=== PATIENT | female | born 1945 | race Caucasian/White ===

== ENCOUNTER → 2017-03-23 | Outpatient (CLI) | payer BC, OTHER ==
[~2017-03-23] MED LIST: GLIP5TAB10 PO; MELO7.5T29 PO; METF-620 PO; SIMV40TA3 PO
--- NOTE | 2017-03-23 15:36 | RAD ---
DATE: 03/23/2017 EXAM: DIGITAL DIAGNOSTIC RT, BREAST RIGHT HISTORY: Abnormal screening exam COMPARISON: Note is made of the mobile screening examination 02/17/2017 demonstrating calcifications in the right breast. FINDINGS: Breast Density: SCATTERED The breast parenchyma shows scattered fibroglandular densities. Breast parenchyma level B. Coned compression images targeted to the calcification seen on the screening examination were obtained. There are amorphous calcification in the right breast which do not have a benign appearance. The mammographic appearance is strongly suggestive of malignancy. Targeted ultrasound of the right breast was performed. Corresponding to the area of calcification is a shadowing vascular hypoechoic mass at the 11:30 position measuring approximately 3.6 cm in greatest dimension. The ultrasound findings are most compatible with primary malignancy. Enlarged lymph nodes are seen in the right axilla suggesting amy metastatic disease. The largest lymph node in the axilla measures 4 cm. Recommendation for biopsy was communicated by me to the patient IMPRESSION: Calcified mass right breast most compatible with primary malignancy. Enlarged lymph nodes in the right axilla suggest local amy metastatic disease BI-RADS CATEGORY: 5 HIGHLY SUGGESTIVE MALIGNANCY RECOMMENDED FOLLOW-UP: BIO BIOPSY RECOMMENDED PQRS compliance statement: Patient information was entered into a reminder system with a target due date soon for the next mammogram. Mammography is a sensitive method for finding small breast cancers, but it does not detect them all and is not a substitute for careful clinical examination. A negative mammogram does not negate a clinically suspicious finding and should not result in delay in biopsying a clinically suspicious abnormality. "Our facility is accredited by the [employer]ammography [employer]."
== END | disposition home or self-care (01) ==
LOC: US 13:40
PROVIDERS: ATTEND Surgery
DX: N63 Unspecified lump in breast (principal); R59.9 Enlarged lymph nodes, unspecified
CPT/HCPCS: 76641; G0206; 77065

== ENCOUNTER → 2017-03-25 | Outpatient (CLI) | payer BC, OTHER ==
[~2017-03-25] VITALS: Ht 154.9 cm; Wt 56.7 kg
[2017-03-25 13:52] VITALS: BP 147/58
--- NOTE | 2017-03-25 15:12 | RAD ---
Indication right breast mass highly suspect for primary malignancy. Note is made of recent imaging of the right breast 03/23/2017 demonstrating findings highly suspect for primary breast malignancy. Preliminary ultrasound images were obtained and the known mass at the 11:00 position of the breast was identified. Ordained Minister ultrasound images were saved. Note was also made of an enlarged lymph node in the right axilla measuring approximately 3 cm in greatest dimension. Image guided biopsy of the breast mass and the enlarged lymph node in the right axilla was discussed with the patient. The risks of infection and bleeding were outlined. The possibility of damage to nerves in the axilla was also discussed. The patient understood the risks associated with the procedure and wished to proceed. Initially the breast mass was approached. The skin was prepped and draped in the routine fashion. Local anesthesia was accomplished with 1% lidocaine. Under ultrasound guidance 4 core samples were obtained. A 14-gauge coaxial system was utilized. Following the biopsy a clip was deployed. Subsequently the right axilla was approached. Again the skin was prepped and draped in the routine fashion. A separate set of needles was used. A separate biopsy system was utilized. Localized lesion was accomplished with 1% lidocaine. A coaxial 18-gauge core biopsy system was utilized. 4 core samples were obtained. The patient tolerated the biopsy procedures well. Following the biopsy the patient was transferred to a dedicated mammographic suite. Conventional images were obtained. Note is made of the biopsy clip. The clip is removed from the suspect calcifications by approximately 1 cm. The retrieved tissue was placed in formaldehyde 1. Marked breast and the second marked axilla. The biopsy sites were dressed in the routine fashion the patient discharged with appropriate instructions. IMPRESSION: Successful ultrasound-guided biopsy of right breast mass and enlarged lymph node in the right axilla
--- NOTE | 2017-03-29 09:10 | PATHOLOGY ---
PATHOLOGY REPORT * * * * * * * * FINAL DIAGNOSIS: A. Breast tissue, right breast core biopsies: - INVASIVE DUCTAL CARCINOMA, HISTOLOGIC GRADE II. SEE COMMENT. - DUCTAL CARCINOMA IN SITU, INTERMEDIATE GRADE, SOLID AND CRIBRIFORM TYPE, WITH FOCAL NECROSIS. B. Right axilla core biopsy: - CONSISTENT WITH METASTATIC ADENOCARCINOMA. COMMENT: Sections of the right breast core biopsy reveal an invasive mammary carcinoma. The tumor shows focal tubule formation, moderate nuclear pleomorphism, and focal moderate mitotic activity. There is focal tumor necrosis. One of the cores shows predominantly intermediate grade ductal carcinoma in situ of solid and cribriform type. There are focal calcifications within areas of DCIS and invasive carcinoma. Tumor focally infiltrates fatty tissue. There is no lymphovascular tumor invasion. Invasive carcinoma measures up to 1.3 cm in greatest dimension on the glass slide. Breast prognostic studies will be obtained, the results of which will be reported separately. Sections of the right axilla biopsy reveal multiple cores of tissue showing extensive replacement by a malignant epithelial neoplasm appearing similar to that within the breast. The findings are consistent with metastatic adenocarcinoma. The case is also examined by Dr. Ochoa, who concurs with the diagnosis. (JPM:mgr; 03/28/2017) REPORT ELECTRONICALLY SIGNED BY: Loc Tovar M.D. DATE/TIME: 03/29/2017 09:09 * * * * * * * * GROSS PATHOLOGY: A. Received in formalin labeled "Emeli Carrillo, right breast," are multiple needle cores of yellow-jones fibrofatty tissue measuring 1.0 x 0.8 x 0.2 cm in aggregate dimensions. The tissue is submitted in its entirety in cassette A1. The cold ischemic time is 5 minutes. The total formalin fixation time is 55 hours and 20 minutes B. Received in formalin labeled "right axilla," are 5 distinct needle cores of mayfield soft tissue ranging from 0.3 to 1.2 cm in length, which are submitted entirely in cassette B1. The cold ischemic time is 5 minutes. The total formalin fixation time is 55 hours and 15 minutes ([facility]; 03/25/17) INITIAL CPT CODE(S): A; 03543, 50613(4) B; 58140 Professional services performed by [facility] [place] [address] Technical services performed by [facility] at [address] [place] [address], [address], [place] [address]. SPECIMEN(S) RECEIVED: A.Right breast biopsy B.Right axillary nodule CLINICAL HISTORY: Right breast and axilla nodule PATIENT: EMELI CARRILLO /AGE: 6 1945 (Age: 72) PATIENT #: [id number] ALT CASE #: SPECIMEN COLLECTION DATE: 03/25/2017 SPECIMEN RECEIVED DATE: 03/25/2017 [facility] - [address] [place] [address] - PHONE: [phone] * * * END OF REPORT * * *
== END | disposition home or self-care (01) ==
LOC: US 13:19
PROVIDERS: ATTEND Surgery
DX: N63 Unspecified lump in breast (principal)
CPT/HCPCS: 76942; C1713; G0206; 77065

== ENCOUNTER 2017-04-18 07:25 | Observation (INO) | payer BC ==
[~2017-04-18] VITALS: Ht 152.4 cm; Wt 58.5 kg
[~2017-04-18 07:25] MED LIST changes: +CALC-31 PO; +CETI10TA16 PO; +HYDROmorphone 2 MG/ML VIAL IV PRN; +ISOSULFAN BLUE 50 MG/5 ML VIAL. SQ ONE; +LIDOCAINE 1% PF 2 ML VIAL. ID PRN; +MORPHINE SULFATE 2 MG/ML DISP.SYRIN. IV PRN; +ONDANSETRON PF 4 MG/2 ML VIAL. IV PRN; +PROCHLORPERAZINE 10 MG/2 ML VIAL. IV PRN; +fentaNYL PF VIAL 100 MCG/2 ML VIAL IV PRN
--- NOTE | 2017-04-18 08:23 | EKG ---
[facility] [address] [place] [address] Test Date: 2017-04-18 Test Time: 08:28:33 Pat Name: DIONNA CARRILLO Department: Room: Gender: F Human Capital Analyst: JOELLE : 1945 Requested By: BEN ZHAO Order Number: [id number] Reading MD: Melanie Crooks Measurements Intervals [place] Rate: 85 P: 65 AL: 214 QRS: -42 QRSD: 136 T: 98 QT: 414 QTc: 493 Interpretive Statements SINUS RHYTHM PROLONGED AL INTERVAL ABNORMAL LEFT AXIS DEVIATION INCOMPLETE LEFT BUNDLE BRANCH BLOCK QRS(T) CONTOUR ABNORMALITY CONSIDER ANTEROSEPTAL MYOCARDIAL DAMAGE ABNORMAL ECG Electronically Signed On 04-18-2017 19:00:29 CDT by Melanie Crooks
[2017-04-18] MEDS: IV RINGERS,LACTATED 1000ML 1,000 ML IV SCH ×2 (08:35→12:13)
[2017-04-18] MEDS ORDERED: DEXAMETHASONE SOD PHOS 20 MG/5 ML VIAL. ONE (08:44)
[2017-04-18] MEDS ORDERED: fentaNYL PF VIAL 100 MCG/2 ML VIAL ONE (08:44)
[2017-04-18] MEDS ORDERED: PROPOFOL 20 ML IV ONE (08:44)
[2017-04-18] MEDS ORDERED: SEVOFLURANE 31 TO 60 MINUTES. IH ONE (08:44)
[2017-04-18] MEDS ORDERED: MIDAZOLAM HCL/PF 2 MG/2 ML VIAL. ONE (08:44)
[2017-04-18] MEDS ORDERED: LIDOCAINE 2% PF Vial for OR 5 ML VIAL. ONE (08:44)
[2017-04-18] MEDS ORDERED: ONDANSETRON PF 4 MG/2 ML VIAL. ONE (08:44)
--- NOTE | 2017-04-18 11:41 | PDOC4 ---
Operative Note Operative Note Operative Note: Preoperative Diagnosis: Right breast cancer with axillary lymph node metastasis Postoperative Diagnosis: Same Procedure: Right modified radical mastectomy Surgeon: Florin Navarro.: Keesha ZAMBRANO Anesthesia: Gen. EBL: 50 mL Specimen: Right breast and axillary contents to pathology Drains: 19 [place] round Gil drain to chest wall Complications: None Indication: The patient is a 72-year-old female who was referred following a recent evaluation for a large right breast mass. She underwent biopsies of the breast mass in addition to suspicious-appearing axillary lymph nodes. Both were positive for adenocarcinoma. In reviewing treatment options with her the patient has no interest in breast conservation and prefers initial surgery with a complete mastectomy. She has met with Dr. Watson preoperatively who concurs. Plan is therefore for a right modified radical mastectomy. The details and risks of surgery were discussed with the patient. The risks include bleeding, infection, pain, nerve injury, wound healing problems, anesthetic risk, potential need for additional surgery or procedure. She understands and would like to proceed. Description: The patient was taken to the operating room and placed supine on the operating table. Gen. anesthesia was performed. The right breast and axilla were prepped with ChloraPrep and draped in a standard surgical manner. An elliptical incision was made around the right nipple areolar complex extending from the medial chest to the axilla. Cautery dissection was used to develop the skin flaps. The superior skin flap was developed first the skin from the deeper breast parenchyma. This was carried superiorly to the level just below the clavicle. In a similar manner the inferior skin flap was developed, freeing the skin away from the breast parenchyma. This included the inframammary fold and the dissection was carried down to the upper torso. In a medial to lateral fashion the right breast was taken off of the chest wall. A stitch was used to miriam the 12 o'clock position and the specimen was sent to pathology. A few small blood vessels were readily controlled with cautery and a few larger vessels were ligated with 2-0 Vicryl ties. We then directed our attention to the right axilla. There were bulky lymph nodes present consistent with known metastatic disease. We began freeing up the axillary lymph nodes and adipose tissue. The boundaries of the dissection included the axillary vein superiorly, the pectoralis medially, and the latissimus laterally. Both the long thoracic and thoracodorsal nerves were identified and preserved. In a superior to inferior fashion the axillary contents including the bulky lymph nodes were excised and sent to pathology. A few larger vessels supplying the axillary contents were ligated in the process with 2-0 Vicryl. Hemostasis was good and no other gross abnormalities were seen. A 19 [place] round Gil drain was left in the right chest wall which exited inferiorly. This was secured to the skin with 2-0 nylon. Hemostasis was good. The subcutaneous tissue was approximated with 3-0 Vicryl. The skin was then closed with a running 4-0 Monocryl suture. A sterile OpSite dressing was applied. The patient tolerated the procedure well and was sent to the recovery room in stable condition. At the end of the case all counts were correct. BEN ZHAO MD Apr 18, 2017 11:41
[2017-04-18] MEDS ORDERED: 0.9 % SODIUM CHLORIDE 10 ML DISP.SYRIN. IV PRN (12:00)
[2017-04-18] MEDS ORDERED: HYDROcodone/APAP 5/325MG 1 TAB TABLET PO PRN (12:00)
[2017-04-18] MEDS ORDERED: HYDROmorphone 2 MG/ML VIAL IV PRN (12:00)
[2017-04-18] MEDS ORDERED: ONDANSETRON PF 4 MG/2 ML VIAL. IV PRN (12:00)
[2017-04-18] MEDS: fentaNYL PF VIAL 100 MCG/2 ML VIAL IV PRN ×2 (12:06→12:16)
[2017-04-18 14:15] VITALS: BP 140/71
[2017-04-18 14:30] VITALS: BP 134/65
[2017-04-18 14:45] VITALS: BP 131/67
[2017-04-18] MEDS: IV 1/2 NORMAL SALINE 1,000 ML IV SCH (15:33)
[2017-04-18 16:52] VITALS: BP 131/67
[2017-04-18 19:00] VITALS: BP 124/66
[2017-04-18] MEDS ORDERED: SIMVASTATIN 40 MG TABLET. PO SCH (21:00)
[2017-04-18] MEDS: HYDROcodone/APAP 5/325MG 1 TAB TABLET PO PRN (21:32)
[2017-04-18 23:00] VITALS: BP 137/55
[2017-04-19] MEDS: IV 1/2 NORMAL SALINE 1,000 ML IV SCH ×2 (01:30→14:00)
[2017-04-19 03:00] VITALS: BP 112/43
[2017-04-19 07:00] VITALS: BP 150/70
[2017-04-19] MEDS ORDERED: glipiZIDE 5 MG TABLET PO SCH (09:00)
[2017-04-19] MEDS ORDERED: CALCIUM CARB/VIT D3 500/200 TABLET. PO SCH (09:00)
[2017-04-19] MEDS ORDERED: CETIRIZINE HCL 10 MG TABLET. PO SCH (09:00)
[2017-04-19] MEDS: HYDROcodone/APAP 5/325MG 1 TAB TABLET PO PRN (09:23)
[2017-04-19 11:00] VITALS: BP 148/78
--- NOTE | 2017-04-19 12:28 | PDOC ---
AMY COLÓN APRN 04/19/17 1228: SURGICAL PROGRESS NOTE Subjective tolerating diet no n/v interested in home health Vital Signs Vital Signs Date Time Temp Pulse Resp B/P (MAP) Pulse Ox O2 Delivery O2 Flow Rate FiO2 04/19/17 11:00 98.2 72 148/78 (101) 96 Room Air 98.2 04/19/17 10:25 18 04/18/17 22:32 10.0 I&O Intake and Output 04/20/17 07:00 Intake Total 390 ml Balance 390 ml Intake Oral 390 ml General: Alert, Oriented X3, Cooperative, No acute distress Skin: Other (right breast incision dry, bruce minimal serosang ) Labs Laboratory Tests Test 04/18/17 08:15 04/18/17 11:38 04/18/17 17:01 04/18/17 21:34 Glucose (Fingerstick) 108 mg/dL (70-99) 194 mg/dL (70-99) 223 mg/dL (70-99) 234 mg/dL (70-99) Test 04/19/17 07:37 04/19/17 11:20 Glucose (Fingerstick) 153 mg/dL (70-99) 81 mg/dL (70-99) Laboratory Tests Test 04/18/17 17:01 04/18/17 21:34 04/19/17 07:37 04/19/17 11:20 Glucose (Fingerstick) 223 mg/dL (70-99) 234 mg/dL (70-99) 153 mg/dL (70-99) 81 mg/dL (70-99) Problem List s/p mastectomy DC home pt would like home health, will ask sw Problems: BEN ZHAO MD 04/19/17 1257: SURGICAL PROGRESS NOTE Assessment/Plan Agree with above Problems: AMY COLÓN APRN Apr 19, 2017 12:28 BEN ZHAO MD Apr 19, 2017 12:57
[2017-04-19 15:00] VITALS: BP 144/86
== END 2017-04-19 15:30 | disposition home health service (06) ==
LOC: SURG 07:25 → 5 SOUTH 11:51
PROVIDERS: ADMIT Surgery; ATTEND Surgery
DX: C50.911 Malignant neoplasm of unspecified site of right female breast (principal); C77.3 Secondary and unspecified malignant neoplasm of axilla and upper limb lymph nodes
CPT/HCPCS: 19307; 82962; 93005; 97161; 97165; G0378; G0379; J0690; J1100; J2250; J2405; J2704; J3010; Q9968; J2001

== ENCOUNTER 2017-05-18 11:52 | Day surgery (SDC) | payer BC ==
[~2017-05-18 11:52] MED LIST changes: +HEPARIN SODIUM 5,000 UNIT in IV NORMAL SALINE 500ML BAG 500 ML IRR ONE; +HYDR-2758 PO; -ISOSULFAN BLUE 50 MG/5 ML VIAL. SQ ONE; +IV RINGERS,LACTATED 1000ML 1,000 ML IV SCH; -MORPHINE SULFATE 2 MG/ML DISP.SYRIN. IV PRN; +MORPHINE SULFATE 4 MG/ML DISP.SYRIN. IV PRN
[2017-05-18] MEDS ORDERED: LIDOCAINE 1% 20 ML VIAL. ONE (13:22)
[2017-05-18] MEDS ORDERED: HEPARIN for IV BOLUS 10,000 UNIT/10 ML VIAL. ONE (13:23)
[2017-05-18] MEDS ORDERED: PROPOFOL 20 ML IV ONE (13:44)
[2017-05-18] MEDS ORDERED: ONDANSETRON PF 4 MG/2 ML VIAL. ONE (13:44)
[2017-05-18] MEDS ORDERED: DEXAMETHASONE SOD PHOS 20 MG/5 ML VIAL. ONE (13:44)
[2017-05-18] MEDS ORDERED: LIDOCAINE 2% PF Vial for OR 5 ML VIAL. ONE (13:44)
[2017-05-18] MEDS ORDERED: ESMOLOL 100 MG/10 ML VIAL. IV ONE (13:49)
[2017-05-18] MEDS ORDERED: SEVOFLURANE 61 TO 120 MINUTES. IH ONE (14:14)
--- NOTE | 2017-05-18 14:19 | PDOC4 ---
Operative Note Operative Note Operative Note: Preoperative Diagnosis: Breast Cancer Postoperative Diagnosis: Same Procedure: Placement of Power Port-A-Cath using SonoSite guidance Surgeon: Florin Anesthesia: Gen. EBL: 10 mL Specimen: None Drains: None Complications: None Indication: The patient is a 72 year old female who was recently diagnosed with right breast cancer. A request was made for placement of a Port-A-Cath to allow for chemotherapy treatment. The details and risks of the procedure were discussed. The risks include bleeding, infection, vessel injury, pneumothorax, pain, anesthetic risk, port, catheter or tubing malfunction or dysfunction, potential need for additional surgery or procedure. The patient understands and would like to proceed. Description: The patient was placed supine on the operating table and general anesthesia was performed. The bilateral neck and chest were prepped with ChloraPrep and draped in a standard surgical manner. With SonoSite ultrasound guidance the left internal jugular vein was readily identified and appeared patent. Entry was made into the vein with the skinny introducer needle under ultrasound guidance. The skinny guidewire passed readily into the central venous system. A small incision was made at the skin exit site. The skinny sheath was then placed over the guidewire. The larger guidewire was then placed within the sheath into the central venous system. Intraoperative fluoroscopy confirmed good position of the guidewire in the central venous system. The dilator and sheath were then placed over the guidewire. The catheter portion was then inserted into the central venous system and visualized using fluoroscopy. A separate left upper chest skin incision was made with a scalpel. A subcutaneous pocket was developed with cautery of sufficient size to accommodate the port. The catheter was then tunneled subcutaneously to the level of the newly formed pocket. Using fluoroscopy the catheter was positioned with the tip in the distal superior vena cava. The catheter was then cut and assembled to the port. The port was then secured to the chest wall with two 2-0 Prolene sutures. Using the Katz needle the port readily aspirated and flushed without difficulty. Fluoroscopy confirmed good positioning of the catheter with no twists or kinks. The subcutaneous tissue was approximated with 3-0 Vicryl. The skin was then closed with 4-0 Monocryl. A sterile OpSite dressing was then applied. The patient tolerated the procedure well and was sent to the recovery room in stable condition. At the end of the case all counts were correct. BEN ZHAO MD May 18, 2017 14:19
--- NOTE | 2017-05-18 14:21 | DISCH ---
DISCHARGE INSTRUCTIONS Condition on Discharge Condition on Discharge: Stable Activity After Discharge Activity Instructions for Disc: Activity as tolerated Diet after Discharge Diet after Discharge: Regular Wound Incision Care Wound/Incision Care: Other, see below (keep dressing clean and dry) Follow-Up Follow up with: Dr Zhao in 2 weeks, call for appt [phone] Follow Up With: Oncology per appointment BEN ZHAO MD May 18, 2017 14:21
[2017-05-18 15:00] VITALS: BP 169/62
[2017-05-18] MEDS ORDERED: HYDROcodone/APAP 5/325MG 1 TAB TABLET PO ONE (15:00)
--- NOTE | 2017-05-18 15:00 | RAD ---
Single view of the Chest 05/18/2017 4:19 PM Indication: portacath placement Comparison: Chest radiograph August 26, 2015 Findings: There is a left internal jugular port with tip at the cavoatrial junction. No pneumothorax is seen. No acute appearing infiltrate is identified. Heart size is mildly enlarged. Diffuse interstitial coarsening is noted. No acute osseous changes are identified. Impression: 1.New left internal jugular port with tip at the cavoatrial junction. 2. Diffuse interstitial coarsening, similar to comparison exam.
== END 2017-05-18 16:34 | disposition home or self-care (01) ==
LOC: SURG 11:52
PROVIDERS: ATTEND Surgery
DX: C50.911 Malignant neoplasm of unspecified site of right female breast (principal); E11.42 Type 2 diabetes mellitus with diabetic polyneuropathy; E78.00 Pure hypercholesterolemia, unspecified; M19.91 Primary osteoarthritis, unspecified site; Z88.6 Allergy status to analgesic agent; Z86.69 Personal history of other diseases of the nervous system and sense organs; Z88.0 Allergy status to penicillin; Z98.890 Other specified postprocedural states
CPT/HCPCS: 36561; 71010; 82962; C1769; J1100; J1644; J1956; J2405; J2704; J3490; J7030; J7040; J7120; 36556; J2001

== ENCOUNTER → 2017-05-25 | Outpatient (CLI) | payer BC, MEDICAID ==
[2017-05-18 15:00] VITALS: BP 169/62
[~2017-05-25] MED LIST changes: -HEPARIN SODIUM 5,000 UNIT in IV NORMAL SALINE 500ML BAG 500 ML IRR ONE; -HYDROmorphone 2 MG/ML VIAL IV PRN; -IV RINGERS,LACTATED 1000ML 1,000 ML IV SCH; -LIDOCAINE 1% PF 2 ML VIAL. ID PRN; -MORPHINE SULFATE 4 MG/ML DISP.SYRIN. IV PRN; -ONDANSETRON PF 4 MG/2 ML VIAL. IV PRN; -PROCHLORPERAZINE 10 MG/2 ML VIAL. IV PRN; -fentaNYL PF VIAL 100 MCG/2 ML VIAL IV PRN
--- NOTE | 2017-05-25 09:54 | CARD ---
APPROVED REPORT EXAM: Two-dimensional and M-mode echocardiogram with Doppler and color Doppler. Other Information Quality : Average Rhythm : NSR INDICATION Chemotherapy evaluation 2D DIMENSIONS RVDd2.1 (2.9-3.5cm)Left Atrium(2D)2.8 (1.6-4.0cm) IVSd1.0 (0.7-1.1cm)Aortic Root(2D)2.7 (2.0-3.7cm) LVDd5.2 (3.9-5.9cm)LVOT Diameter2.1 (1.8-2.4cm) PWd1.0 (0.7-1.1cm)LVDs4.0 (2.5-4.0cm) SV59.8 mlLVEF(%)40.8 (>50%) Aortic Valve AoV Peak Sam.145.0cm/sAoV VTI19.7cm AO Peak GR.8.4mmHgLVOT Peak Sam.99.3cm/s LVOT VTI 17.47cmAO Mean GR.4mmHg SHA (VMAX)2.44zw3OOU (VTI)2.95cm2 AI P 1/2 Holr461tn Mitral Valve MV E Lxyplubq65.0cm/sMV DECEL FFLQ946wn MV A Iuxqgkvd317.6cm/sMV E Mean Gr.3mmHg MV AES49heB/A Ratio0.7 MV A Ormjrslv079cvHWW (PHT)2.75cm2 TDI E/Lateral E'9.3E/Medial E'10.8 Pulmonary Valve PV Peak Itmptsdf92.6cm/sPV Peak Grad.4mmHg RVOT VTI18.6cm Tricuspid Valve TR P. Yqtsxbyn870sr/sRAP IDDZRRNO6riCw TR Peak Gr.59wkGbVROO14ciUz LEFT VENTRICLE The left ventricle is normal size. There is normal left ventricular wall thickness. Left ventricle sy stolic function is moderately impaired. The Ejection Fraction is 35-40%. Abnormal septal wall motion. Tissue Doppler imaging reveals mild left ventricular diastolic dysfunction. Transmitral Doppler flow pattern is Grade I-abnormal relaxation pattern. There is no ventricular septal defect visualized. RIGHT VENTRICLE The right ventricle is normal size. The right ventricular systolic function is normal. ATRIA The left atrium size is normal. The right atrium size is normal. The interatrial septum is intact wit h no evidence for an atrial septal defect or patent foramen ovale as noted on 2-D or Doppler imaging. AORTIC VALVE The aortic valve is not well visualized. Doppler and Color Flow revealed moderate aortic regurgitatio n. There is no significant aortic valvular stenosis. MITRAL VALVE The mitral valve leaflets are thickened. There is no mitral valve stenosis. Doppler and Color Flow re vealed mild mitral regurgitation. TRICUSPID VALVE The tricuspid valve is normal in structure and function. Doppler and Color Flow revealed mild tricusp id regurgitation. The PA pressure was estimated at 35 mmHg. There is no tricuspid valve stenosis. PULMONIC VALVE The pulmonic valve is not well visualized. Doppler and Color Flow revealed no pulmonic valvular regur gitation. There is no pulmonic valvular stenosis. GREAT VESSELS The aortic root is normal in size. Pulmonary vein flow not well visualized. The IVC is normal in size and collapses >50% with inspiration. PERICARDIAL EFFUSION There is no evidence of significant pericardial effusion. Critical Notification Critical Value: No <Conclusion> Left ventricle systolic function is moderately impaired. The Ejection Fraction is 35-40%. Transmitral Doppler flow pattern is Grade I-abnormal relaxation pattern. Moderate aortic regurgitation. Mild mitral regurgitation. Mild tricuspid regurgitation. The PA pressure was estimated at 35 mmHg. There is no evidence of significant pericardial effusion.
== END | disposition home or self-care (01) ==
LOC: ECHO 08:43
PROVIDERS: ATTEND Internal Medicine Hematology & Oncology
DX: I08.3 Combined rheumatic disorders of mitral, aortic and tricuspid valves (principal); C50.411 Malignant neoplasm of upper-outer quadrant of right female breast; Z17.0 Estrogen receptor positive status [ER+]
CPT/HCPCS: 93306

== ENCOUNTER 2017-06-10 08:07 | Outpatient (CLI) | payer BC, MEDICAID ==
[2017-06-10] VITALS (10 sets, daily range): BP systolic 111–136; BP diastolic 51–64
[~2017-06-10] VITALS: Ht 154.9 cm; Wt 56.7 kg
[2017-06-10 08:49] LABS: HEMATOCRIT 40.6 % (36.0-47.0); HEMOGLOBIN 13.6 g/dL (12.0-15.5); RED BLOOD COUNT 4.88 x10^6/uL (3.50-5.40); RED CELL DISTRIBUTION WIDTH 13.7 % (11.5-14.5)
[2017-06-10] MEDS ORDERED: ACET325T9 PO (08:50)
[2017-06-10] MEDS ORDERED: CARV3.122 PO (08:50)
--- NOTE | 2017-06-10 08:52 | PDOC ---
MODERATE SEDATION ASSESSMENT RISKS/ALTERNATIVES Risks/Alternatives Risks and alternatives of this type of sedation and procedure discussed with: RISK/ALTERNATIVES: Patient H & P ON CHART H & P H & P on chart and reviewed for co-morbid conditions and appropriate labs. H&P ON CHART: Yes STATUS PREG STATUS ASSESSED: N/A MEDS/ALLERGIES REVIEWED Meds/Allergies Reviewed Medications and Allergies including time and route of recently administered narcotics and sedatives. MEDS/ALLERGIES REVIEWED: Yes ASA RATING ASA RATING: II AIRWAY ASSESSMENT Airway Assessment Airway patency, oral function limitations, presence of caps, crowns, dentures, partials, and ability to extend neck assessed. AIRWAY ASSESSMENT: Yes MALLAMPATI SCORE MALLAMPATI SCORE: II PRE-SEDATION ASSESSMENT PRE-SEDATION ASSESSMENT: Yes RAYMOND HARRIS MD Jun 10, 2017 08:52
[2017-06-10 08:55] LABS: WHITE BLOOD COUNT 0.8 x10^3/uL (4.0-11.0)
[2017-06-10 08:56] LABS: CALCIUM 8.8 mg/dL (8.5-10.1); CREATININE 0.9 mg/dL (0.6-1.0); GFR 61.2; POTASSIUM 3.9 mmol/L (3.5-5.1)
[2017-06-10 08:58] LABS: INR 1.2 (0.8-1.1); PROTHROMBIN TIME PATIENT 14.9 SEC (11.7-14.0)
[2017-06-10] MEDS ORDERED: LIDOCAINE 2% 20 ML VIAL. ONE (09:14)
[2017-06-10] MEDS ORDERED: IOHEXOL 300 MG/ML 100ML VIAL. ONE (09:14)
[2017-06-10] MEDS ORDERED: MIDAZOLAM HCL/PF 2 MG/2 ML VIAL. ONE (09:23)
[2017-06-10] MEDS ORDERED: fentaNYL PF VIAL 100 MCG/2 ML VIAL ONE (09:23)
[2017-06-10] MEDS ORDERED: VERAPAMIL 5 MG/2 ML VIAL. ONE (09:24)
[2017-06-10] MEDS ORDERED: HEPARIN for IV BOLUS 10,000 UNIT/10 ML VIAL. ONE (09:24)
[2017-06-10] MEDS ORDERED: NITROGLYCERIN 200 MCG/2 ML SYRINGE FOR CATH/VASC LAB. ONE (09:24)
[2017-06-10] MEDS ORDERED: fentaNYL PF VIAL 100 MCG/2 ML VIAL IV ONE (10:15)
[2017-06-10] MEDS ORDERED: LIDOCAINE 2% 20 ML VIAL. IJ ONE (10:15)
[2017-06-10] MEDS ORDERED: IOHEXOL 300 MG/ML 100ML VIAL. IART ONE (10:15)
[2017-06-10] MEDS ORDERED: MIDAZOLAM HCL/PF 2 MG/2 ML VIAL. IV ONE (10:15)
[2017-06-10] MEDS ORDERED: IV 1/2 NORMAL SALINE 1,000 ML IV SCH (10:16)
[2017-06-10] MEDS ORDERED: NITROGLYCERIN SUBLINGUAL 0.4 MG BOTTLE OF 25. SL PRN (10:30)
[2017-06-10] MEDS ORDERED: 0.9 % SODIUM CHLORIDE 10 ML DISP.SYRIN. IV PRN (10:30)
--- NOTE | 2017-06-10 10:31 | CARD ---
APPROVED REPORT Procedure(s) performed: Left heart catheterization, selective coronary angiography and left ventricul ography Moderate Sedation: 41 [place] INDICATION The indication(s) include : Cardiomyopathy. PROCEDURE NARRATIVE After explaining the risks, benefits and alternative options, informed consent was obtained from page ent. Patient was brought to the cardiac Dredge Mate and right wrist and groin were prepped and draped i n the usual fashion. Attempts to obtain radial arterial access were unsuccessful due to small caliber vessel. Arterial access was then obtained in the right common femoral artery and a 6 Slov[place] sheath was inserted. 6 [place] JL4 and 6 [place] JR4 catheters were used to perform selective angiography of t he left and right coronary arteries. 6 [place] pigtail catheter was used to perform left ventriculogr aphy. Patient tolerated the procedure well. Hemostasis was achieved using Angio-Seal. There were n o immediate complications. The following findings were noted. FINDINGS 1. Hemodynamics: Left ventricular end-diastolic pressure of 6 mmHg. No pullback gradient across the aortic valve. 2. Left ventriculography: Severe global left ventricle systolic dysfunction with ejection fraction e stimated at 25%. No significant mitral regurgitation seen. 3. Coronary angiography: a. The left main coronary artery arose from the left sinus of Valsalva, gave rise to the left anteri or descending and left circumflex arteries and did not show any significant stenosis. b. The left anterior descending artery did not show any significant stenosis. c. The left circumflex artery did not show any significant stenosis. d. The right coronary artery was a large and dominant vessel arising from the right sinus of Valsalv a that did not show any significant stenosis. Conclusion 1. No significant coronary artery disease 2. Severe global left ventricle systolic dysfunction with ejection fraction estimated at 25% Recommendations Optimization of medical therapy for nonischemic cardiomyopathy.
== END 2017-06-10 13:10 | disposition home or self-care (01) ==
LOC: CCL 08:07
PROVIDERS: ATTEND Internal Medicine Cardiovascular Disease
DX: I11.9 Hypertensive heart disease without heart failure (principal); E78.00 Pure hypercholesterolemia, unspecified; E11.42 Type 2 diabetes mellitus with diabetic polyneuropathy; M19.91 Primary osteoarthritis, unspecified site; Z86.69 Personal history of other diseases of the nervous system and sense organs; Z87.39 Personal history of other diseases of the musculoskeletal system and connective tissue; Z86.39 Personal history of other endocrine, nutritional and metabolic disease; Z87.440 Personal history of urinary (tract) infections; Z88.6 Allergy status to analgesic agent; Z88.0 Allergy status to penicillin
CPT/HCPCS: 36415; 80048; 85027; 85610; 93458; 99152; 99153; C1769; C1771; C1892; G0269; J1644; J2250; J3010; Q9967; J2001

== ENCOUNTER → 2018-01-10 | Outpatient (CLI) | payer BC | END | disposition home or self-care (01) | LOC: MAMMO 12:07 | DX: R92.8 Other abnormal and inconclusive findings on diagnostic imaging of breast (principal); I11.0 Hypertensive heart disease with heart failure; E11.40 Type 2 diabetes mellitus with diabetic neuropathy, unspecified; I50.9 Heart failure, unspecified; E78.00 Pure hypercholesterolemia, unspecified | CPT/HCPCS: 77065; G0279 ==

== ENCOUNTER → 2019-01-15 | Outpatient (CLI) | payer BC ==
[2017-06-10 13:00] VITALS: BP 128/61
[~2019-01-15] MED LIST changes: +ACET325T9 PO; +ANAS1TAB47 PO; +CARV3.1210 PO; +GLIP10TA13 PO; +GLIP2.5T4 PO; -HYDR-2758 PO; +HYDR-2761 PO; -METF-620 PO; +METF10007 PO
--- NOTE | 2019-01-15 13:01 | RAD ---
DATE: 01/15/2019 EXAM: MAMMO NOAH DIAG LT HISTORY: Right mastectomy COMPARISON: 02/17/2017 screening mammographic exam, left unilateral mammographic exam 01/10/2018 This study was interpreted with the benefit of Computerized Aided Detection (CAD). Breast Density: SCATTERED The breast parenchyma shows scattered fibroglandular densities. Breast parenchyma level B. FINDINGS: Vascular calcification is present. No suspicious calcification cluster, mass, or distortion. IMPRESSION: Stable. BI-RADS CATEGORY: 1 NEGATIVE RECOMMENDED FOLLOW-UP: 12M 12 MONTH FOLLOW-UP PQRS compliance statement: Patient information was entered into a reminder system with a target due date in one year for the next mammogram. Mammography is a sensitive method for finding small breast cancers, but it does not detect them all and is not a substitute for careful clinical examination. A negative mammogram does not negate a clinically suspicious finding and should not result in delay in biopsying a clinically suspicious abnormality. "Our facility is accredited by the [employer]ammography [employer]."
== END | disposition home or self-care (01) ==
LOC: MAMMO 15:36
PROVIDERS: ATTEND Internal Medicine Hematology & Oncology
DX: R92.1 Mammographic calcification found on diagnostic imaging of breast (principal); Z17.0 Estrogen receptor positive status [ER+]; Z90.11 Acquired absence of right breast and nipple; Z85.3 Personal history of malignant neoplasm of breast
CPT/HCPCS: 77065; G0279; 77061

== ENCOUNTER 2019-09-17 16:10 | Inpatient (IN) | payer BC ==
[~2019-09-17] VITALS: Ht 154.9 cm; Wt 57.9 kg
[~2019-09-17 16:10] MED LIST changes: +ASCO500T2 PO; +GABA-585 PO; +LACT1CAP19 PO; +LINE600T12 PO; +MULT1TAB90 PO; +POLY17PO28 PO; +SIMV40TA18 PO; -SIMV40TA3 PO
[2019-09-17] MEDS ORDERED: IV NORMAL SALINE 1000ML BAG 1,000 ML IV ONE (16:30)
[2019-09-17 16:46] LABS: BASO % 0 % (0-3); EOS % 1 % (0-3); HEMATOCRIT 31.4 % (36.0-47.0); HEMOGLOBIN 10.6 g/dL (12.0-15.5); LYMPH # 0.3 x10^3/uL (1.0-4.8); LYMPH % 6 % (24-48); MEAN CORPUSCULAR HEMOGLOBIN 28 pg (25-35); MEAN CORPUSCULAR HGB CONC 34 g/dL (31-37); MEAN CORPUSCULAR VOLUME 83 fL (79-100); MONO # 0.6 x10^3/uL (0.0-1.1); MONO % 12 % (0-9); NEUT # 4.1 x10^3/uL (1.8-7.7); NEUT % 81 % (31-73); PLATELET COUNT 208 x10^3/uL (140-400); RED BLOOD COUNT 3.77 x10^6/uL (3.50-5.40); RED CELL DISTRIBUTION WIDTH 15.8 % (11.5-14.5); WHITE BLOOD COUNT 5.1 x10^3/uL (4.0-11.0)
[2019-09-17 16:55] LABS: PROTHROMBIN TIME PATIENT 13.8 SEC (11.7-14.0)
--- NOTE | 2019-09-17 17:10 | PHYS DOC ---
Past Medical History Past Medical History: Cancer, Diabetes-Type II, High Cholesterol, Other Additional Past Medical Histor: TENDONITIS , R. BREAST CA (CHI AMEZCUA DO) Past Surgical History: Other Additional Past Surgical Histo: poor historian, MASTECTOMY R BREAST (CHI AMEZCUA DO) Smoking Status: Never Smoker Alcohol Use: None Drug Use: None (CHI AMEZCUA DO) Adult General Chief Complaint Chief Complaint: LOWER EXT PAIN HPI HPI 74 year old female presents with report of weakness and feeling she is unsteady on her feet. Reports history of recent admission first to [facility] for weakness and then had been admitted to [facility] for rehab. Patient discharged from that facility yesterday and reports she still is feeling unsafe on her feet. Reports her legs feel "jiggly and wiggly". Denies fall. Denies headache or neck pain. Denies trauma. Denies fever/chills. Denies chest pain. Reports she is currently having a cough and thinks she needs something for her cough. Reports she currently lives alone. (CHI AMEZCUA DO) Review of Systems Review of Systems Constitutional: Denies fever or chills Eyes: Denies change in visual acuity, redness, or eye pain [] HENT: Denies nasal congestion or sore throat Respiratory: Denies cough or shortness of breath Cardiovascular: Denies chest pain or palpitations GI: Denies abdominal pain, nausea, vomiting,or diarrhea : Denies dysuria or hematuria Musculoskeletal: Denies back pain; reports pain to bilateral LE Integument: Denies rash or skin lesions Neurologic: Denies headache, focal weakness or sensory changes Complete systems were reviewed and found to be within normal limits, except as documented in this note. (CHI AMEZCUA DO) Current Medications Current Medications Current Medications Medications (Trade) Dose Ordered Sig/Bakari Start Time Stop Time Status Last Admin Dose Admin Sodium Chloride 1,000 ml @ 1,000 mls/hr 1X ONCE 09/17/19 16:30 09/17/19 17:29 DC 09/17/19 16:30 1,000 MLS/HR (GATO MCLAIN DO) Allergies Allergies Allergies Coded Allergies Type Severity Reaction Last Updated Verified Penicillins Allergy Intermediate Swelling 05/18/17 Yes aspirin Adverse Reaction Intermediate GI UPSET 05/18/17 Yes orange Adverse Reaction Intermediate Nausea 08/10/17 Yes (GATO MCLAIN I ) Physical Exam Physical Exam Constitutional: Well developed, well nourished, no acute distress, non-toxic appearance, hyperverbal HENT: Normocephalic, atraumatic, oropharynx moist Eyes: PERRL, EOMI, conjunctiva normal, no discharge Neck: Normal range of motion, no tenderness, supple Cardiovascular: Heart rate normal, regular rhythm Lungs & Thorax: Bilateral breath sounds clear to auscultation, no wheezing Abdomen: Soft, no tenderness Skin: Warm, dry, no erythema, no rash Extremities: No cyanosis, ROM intact, 1+ BLE edema, reports pain with lowering legs Neurologic: Alert and oriented X 3, normal motor function, normal sensory function, no focal deficits noted Psychologic: Affect manic, judgment normal, tangential thought process (CHI AMEZCUA DO) Current Patient Data Vital Signs Vital Signs Date Time Temp Pulse Resp B/P (MAP) Pulse Ox O2 Delivery O2 Flow Rate FiO2 09/17/19 18:30 104 18 147/65 (92) 100 Room Air 09/17/19 16:10 98.2 98.2 (ANAYGATO DO) Lab Values Laboratory Tests Test 09/17/19 11:27 09/17/19 16:43 09/17/19 17:04 09/17/19 17:14 White Blood Count 5.1 x10^3/uL (4.0-11.0) Red Blood Count 3.77 x10^6/uL (3.50-5.40) Hemoglobin 10.6 g/dL (12.0-15.5) L Hematocrit 31.4 % (36.0-47.0) L Mean Corpuscular Volume 83 fL (79-100) Mean Corpuscular Hemoglobin 28 pg (25-35) Mean Corpuscular Hemoglobin Concent 34 g/dL (31-37) Red Cell Distribution Width 15.8 % (11.5-14.5) H Platelet Count 208 x10^3/uL (140-400) Neutrophils (%) (Auto) 81 % (31-73) H Lymphocytes (%) (Auto) 6 % (24-48) L Monocytes (%) (Auto) 12 % (0-9) H Eosinophils (%) (Auto) 1 % (0-3) Basophils (%) (Auto) 0 % (0-3) Neutrophils # (Auto) 4.1 x10^3/uL (1.8-7.7) Lymphocytes # (Auto) 0.3 x10^3/uL (1.0-4.8) L Monocytes # (Auto) 0.6 x10^3/uL (0.0-1.1) Eosinophils # (Auto) 0.0 x10^3/uL (0.0-0.7) Basophils # (Auto) 0.0 x10^3/uL (0.0-0.2) Segmented Neutrophils % 80 % (35-66) H Band Neutrophils % 3 % (0-9) Lymphocytes % 5 % (24-48) L Monocytes % 11 % (0-10) H Eosinophils % 1 % (0-5) Platelet Estimate Adequate (ADEQUATE) Anisocytosis Slight Prothrombin Time 13.8 SEC (11.7-14.0) Prothrombin Time INR 1.1 (0.8-1.1) Activated Partial Thromboplast Time 26 SEC (24-38) Lactic Acid Level 1.8 mmol/L (0.4-2.0) Influenza Type A Antigen Negative (NEGATIVE) Influenza Type B Antigen Negative (NEGATIVE) Troponin I Quantitative < 0.017 ng/mL (0.000-0.055) Test 09/17/19 18:00 09/17/19 18:39 Sodium Level 142 mmol/L (136-145) Potassium Level 3.5 mmol/L (3.5-5.1) Chloride Level 109 mmol/L (98-107) H Carbon Dioxide Level 18 mmol/L (21-32) L Anion Gap 15 (6-14) H Blood Urea Nitrogen 14 mg/dL (7-20) Creatinine 0.6 mg/dL (0.6-1.0) Estimated GFR (Cockcroft-Gault) 97.2 BUN/Creatinine Ratio 23 (6-20) H Glucose Level 112 mg/dL (70-99) H Calcium Level 7.5 mg/dL (8.5-10.1) L Magnesium Level 1.4 mg/dL (1.8-2.4) L Total Bilirubin 0.4 mg/dL (0.2-1.0) Aspartate Amino Transferase (AST) 26 U/L (15-37) Alanine Aminotransferase (ALT) 23 U/L (14-59) Alkaline Phosphatase 95 U/L (46-116) Creatine Kinase 85 U/L (26-192) Creatine Kinase MB (Mass) 1.8 ng/mL (0.0-3.6) Creatine Kinase MB Relative Index 2.1 % (0-4) Total Protein 5.1 g/dL (6.4-8.2) L Albumin 2.6 g/dL (3.4-5.0) L Albumin/Globulin Ratio 1.0 (1.0-1.7) Urine Collection Type U cath Urine Color Yellow Urine Clarity Clear Urine pH 5.0 (<5.0-8.0) Urine Specific [place] 1.020 (1.000-1.030) Urine Protein Negative mg/dL (NEG-TRACE) Urine Glucose (UA) Negative mg/dL (NEG) Urine Ketones (Stick) 15 mg/dL (NEG) Urine Blood Negative (NEG) Urine Nitrite Negative (NEG) Urine Bilirubin Negative (NEG) Urine Urobilinogen Dipstick 0.2 mg/dL (0.2 mg/dL) Urine Leukocyte Esterase Negative (NEG) Urine RBC 0 /HPF (0-2) Urine WBC 0 /HPF (0-4) Urine Bacteria 0 /HPF (0-FEW) Urine Mucus Slight /LPF Laboratory Tests 09/17/19 11:27 Laboratory Tests 09/17/19 18:00 (GATO MCLAIN DO) EKG EKG @1639 Sinus tachycardia at 107bpm, NO ST elevation, LBBB, compared to prior EKG from 04/18/2017 per [facility] without significant change from prior. (CHI AMEZCUA DO) Radiology/Procedures Radiology/Procedures PROCEDURE: CHEST PA & LATERAL CHEST PA LATERAL History: Cough Comparison: No great 2016 Findings: Patchy bibasilar opacities. Prominence of the bilateral charo, increased compared to prior. No pneumothorax. Normal heart size. No pleural effusion. Impression: 1. Patchy bibasilar opacities, most likely atelectasis. 2. Prominent bilateral charo, may relate to enlarged pulmonary vasculature or lymphadenopathy. Electronically signed by: Fredi Banks DO (09/17/2019 5:29 PM) [id number] (CHI AMEZCUA DO) Course & Med Decision Making Course & Med Decision Making Pertinent Labs and Imaging studies reviewed. (See chart for details) Patient presents with report of weakness to bilateral legs which has been linda oing for some time. Patient recently had been admitted to [facility] and then finished rehab at [facility] for similar. Discharged yesterday. Denies syncope. NIHSS 0. Patient reports pain to bilateral legs. EKG stable. Labs obtained and partially pending. CXR without acute process. Sign out given to Dr. Mclain at 1800 for further evaluation and final disposition. Discussed current findings and plan with patient and friend, who acknowledge understanding and agreement. (CHI AMEZCUA DO) Course & Med Decision Making Assumed care at shift change disposition pending reevaluation and labs. Labs reviewed and discussed with patient. Attempted to ambulate patient-- patient unable to do so. Patient was admitted to the hospitalist for further evaluation and treatment. (GATO MCLAIN DO) Dragon Disclaimer Dragon Disclaimer This electronic medical record was generated, in whole or in part, using a voice recognition dictation system. (CHI AMEZCUA DO) Departure Departure Impression: Primary Impression: Weakness Additional Impression: Unable to ambulate Disposition: ADMITTED INPATIENT Condition: STABLE Referrals: Soledad TUTTLE MD (PCP) Problem Qualifiers CHI AMEZCUA DO Sep 17, 2019 17:10 GATO MCLAIN DO Sep 17, 2019 20:04
[2019-09-17 17:27] LABS: % BANDS 3 % (0-9); % EOS 1 % (0-5); % LYMPHS 5 % (24-48); % MONOS 11 % (0-10); % SEGS 80 % (35-66)
[2019-09-17 17:28] LABS: ANISOCYTOSIS SLIGHT; PLT ESTIMATE ADEQUATE (ADEQUATE)
--- NOTE | 2019-09-17 17:33 | RAD ---
CHEST PA LATERAL History: Cough Comparison: No great 2016 Findings: Patchy bibasilar opacities. Prominence of the bilateral charo, increased compared to prior. No pneumothorax. Normal heart size. No pleural effusion. Impression: 1. Patchy bibasilar opacities, most likely atelectasis. 2. Prominent bilateral charo, may relate to enlarged pulmonary vasculature or lymphadenopathy. Electronically signed by: Fredi Banks DO (09/17/2019 5:29 PM) [id number]
[2019-09-17 18:13] LABS: INFLUENZA A PATIENT NEGATIVE (NEGATIVE); INFLUENZA B PATIENT NEGATIVE (NEGATIVE)
--- NOTE | 2019-09-17 18:24 | EKG ---
[facility] [address] [place] [address] Test Date: 2019-09-17 Test Time: 16:39:24 Pat Name: DIONNA CARRILLO Department: Room: Gender: F Welding Machine Operator Arc: : 1945 Requested By: CHI AMEZCUA Order Number: [id number] Reading MD: Measurements Intervals Villanueva Rate: 107 P: 90 IA: 176 QRS: -52 QRSD: 132 T: 72 QT: 358 QTc: 484 Interpretive Statements SINUS TACHYCARDIA ABNORMAL LEFT AXIS DEVIATION NON SPECIFIC INTRAVENTRICULAR BLOCK ABNORMAL ECG RI6.01 No previous ECG available for comparison
[2019-09-17 18:29] LABS: CALCIUM 7.5 mg/dL (8.5-10.1); CREATININE 0.6 mg/dL (0.6-1.0); GFR 97.2; POTASSIUM 3.5 mmol/L (3.5-5.1)
[2019-09-17 18:39] LABS: ALBUMIN 2.6 g/dL (3.4-5.0); MAGNESIUM 1.4 mg/dL (1.8-2.4); TOTAL BILIRUBIN 0.4 mg/dL (0.2-1.0); TOTAL PROTEIN 5.1 g/dL (6.4-8.2)
[2019-09-17 18:52] LABS: BILIRUBIN,URINE NEGATIVE (NEG); CLARITY,URINE CLEAR; COLOR,URINE YELLOW; NITRITE,URINE NEGATIVE (NEG); PROTEIN,URINE NEGATIVE (NEG-TRACE); UROBILINOGEN,URINE 0.2 mg/dL (0.2 mg/dL)
[2019-09-17 19:01] LABS: BACTERIA,URINE 0 /HPF (0-FEW); RBC,URINE 0 /HPF (0-2); WBC,URINE 0 /HPF (0-4)
--- NOTE | 2019-09-17 22:37 | PDOC1 ---
History and Physical Date of Admission Date of Admission 09/17/2019 Identification/Chief Complaint Chief Complaint I cannot take care of myself Source Source: Chart review, Patient History of Present Illness History of Present Illness Patient is a 74-year-old female with past medical history of breast cancer diabetes type 2 dyslipidemia who was in her usual state of health until the day of her admission. Patient refers being dismissed from a rehab facility yesterday and relates to me that she felt she was dismissed earlier than she should have been. Of note is that patient lives by herself and does not seem to have a good support system in place. She is complaining also of a dry cough denies any fever no pleurisy no sick contacts no sputum production has been reported. She denies dyspnea and is more of a nagging cough as per the patient. She denies postnasal drip denies epigastric pain no reflux evident. Patient is able to speak in full sentences, she does not seem to have neurological deficits but when prompted to walk apparently she is unable to do so although she was dismissed just yesterday from a rehab facility. She is requesting admission since she is unable to care for herself and we have been asked to look into placement for the patient. No other complaints voiced during my encounter ER history as follows: Adult General Chief Complaint Chief Complaint: LOWER EXT PAIN HPI HPI 74 year old female presents with report of weakness and feeling she is unsteady on her feet. Reports history of recent admission first to [facility] for weakness and then had been admitted to [facility] for rehab. Patient discharged from that facility yesterday and reports she still is feeling unsafe on her feet. Reports her legs feel "jiggly and wiggly". Denies fall. Denies headache or neck pain. Denies trauma. Denies fever/chills. Denies chest pain. Reports she is currently having a cough and thinks she needs something for her cough. Reports she currently lives alone. Past Medical History Cardiovascular: Hyperlipidemia Heme/Onc: Cancer Endocrine: Diabetes Past Surgical History Past Surgical History: No pertinent history Social History ALCOHOL: none Drugs: None Current Problem List Problem List Problems Medical Problems: (1) Unable to ambulate Status: Acute (2) Weakness Status: Acute Current Medications Current Medications Current Medications Medications (Trade) Dose Ordered Sig/Bakari Start Time Stop Time Status Last Admin Dose Admin Sodium Chloride 1,000 ml @ 1,000 mls/hr 1X ONCE 09/17/19 16:30 09/17/19 17:29 DC 09/17/19 16:30 1,000 MLS/HR Allergies Allergies Allergies Coded Allergies Type Severity Reaction Last Updated Verified Penicillins Allergy Intermediate Swelling 05/18/17 Yes aspirin Adverse Reaction Intermediate GI UPSET 05/18/17 Yes orange Adverse Reaction Intermediate Nausea 08/10/17 Yes ROS Review of System CONSTITUTIONAL: No fever or chills EYES: No recent changes SKIN: No rash or itching CARDIOVASCULAR: No chest pain, syncope, palpitations, or edema RESPIRATORY: No SOB or cough GASTROINTESTINAL: No nausea, vomiting or abdominal pain NEUROLOGICAL: No headaches or weakness ENDOCRINE: No cold or heat intolerance GENITOURINARY: No urgency or frequency of urination MUSCULOSKELETAL: No back pain or joint pain LYMPHATICS: No enlarged lymph nodes PSYCHIATRIC: No anxiety or depression Physical Exam Physical Exam GEN.: No apparent distress. Alert and oriented. HEENT: Head is normocephalic, atraumatic NECK: Supple. LUNGS: Clear to auscultation. HEART: RRR, S1, S2 present. Peripheral pulses intact ABDOMEN: Soft, nontender. Positive bowel sounds. EXTREMITIES: Without any cyanosis. NEUROLOGIC: Normal speech, normal tone PSYCHIATRIC: Normal affect, normal mood. SKIN: No ulcerations Vitals Vitals Vital Signs Date Time Temp Pulse Resp B/P (MAP) Pulse Ox O2 Delivery O2 Flow Rate FiO2 09/17/19 18:30 104 18 147/65 (92) 100 Room Air 09/17/19 16:10 98.2 98.2 Labs Labs Laboratory Tests Test 09/17/19 11:27 09/17/19 16:43 09/17/19 17:04 09/17/19 17:14 White Blood Count 5.1 x10^3/uL (4.0-11.0) Red Blood Count 3.77 x10^6/uL (3.50-5.40) Hemoglobin 10.6 g/dL (12.0-15.5) Hematocrit 31.4 % (36.0-47.0) Mean Corpuscular Volume 83 fL (79-100) Mean Corpuscular Hemoglobin 28 pg (25-35) Mean Corpuscular Hemoglobin Concent 34 g/dL (31-37) Red Cell Distribution Width 15.8 % (11.5-14.5) Platelet Count 208 x10^3/uL (140-400) Neutrophils (%) (Auto) 81 % (31-73) Lymphocytes (%) (Auto) 6 % (24-48) Monocytes (%) (Auto) 12 % (0-9) Eosinophils (%) (Auto) 1 % (0-3) Basophils (%) (Auto) 0 % (0-3) Neutrophils # (Auto) 4.1 x10^3/uL (1.8-7.7) Lymphocytes # (Auto) 0.3 x10^3/uL (1.0-4.8) Monocytes # (Auto) 0.6 x10^3/uL (0.0-1.1) Eosinophils # (Auto) 0.0 x10^3/uL (0.0-0.7) Basophils # (Auto) 0.0 x10^3/uL (0.0-0.2) Segmented Neutrophils % 80 % (35-66) Band Neutrophils % 3 % (0-9) Lymphocytes % 5 % (24-48) Monocytes % 11 % (0-10) Eosinophils % 1 % (0-5) Platelet Estimate Adequate (ADEQUATE) Anisocytosis Slight Prothrombin Time 13.8 SEC (11.7-14.0) Prothromb Time International Ratio 1.1 (0.8-1.1) Activated Partial Thromboplast Time 26 SEC (24-38) Lactic Acid Level 1.8 mmol/L (0.4-2.0) Influenza Type A Antigen Negative (NEGATIVE) Influenza Type B Antigen Negative (NEGATIVE) Troponin I Quantitative < 0.017 ng/mL (0.000-0.055) Test 09/17/19 18:00 09/17/19 18:39 Sodium Level 142 mmol/L (136-145) Potassium Level 3.5 mmol/L (3.5-5.1) Chloride Level 109 mmol/L (98-107) Carbon Dioxide Level 18 mmol/L (21-32) Anion Gap 15 (6-14) Blood Urea Nitrogen 14 mg/dL (7-20) Creatinine 0.6 mg/dL (0.6-1.0) Estimated GFR (Cockcroft-Gault) 97.2 BUN/Creatinine Ratio 23 (6-20) Glucose Level 112 mg/dL (70-99) Calcium Level 7.5 mg/dL (8.5-10.1) Magnesium Level 1.4 mg/dL (1.8-2.4) Total Bilirubin 0.4 mg/dL (0.2-1.0) Aspartate Amino Transf (AST/SGOT) 26 U/L (15-37) Alanine Aminotransferase (ALT/SGPT) 23 U/L (14-59) Alkaline Phosphatase 95 U/L (46-116) Creatine Kinase 85 U/L (26-192) Creatine Kinase MB (Mass) 1.8 ng/mL (0.0-3.6) Creatine Kinase MB Relative Index 2.1 % (0-4) Total Protein 5.1 g/dL (6.4-8.2) Albumin 2.6 g/dL (3.4-5.0) Albumin/Globulin Ratio 1.0 (1.0-1.7) Urine Collection Type U cath Urine Color Yellow Urine Clarity Clear Urine pH 5.0 (<5.0-8.0) Urine Specific [place] 1.020 (1.000-1.030) Urine Protein Negative mg/dL (NEG-TRACE) Urine Glucose (UA) Negative mg/dL (NEG) Urine Ketones (Stick) 15 mg/dL (NEG) Urine Blood Negative (NEG) Urine Nitrite Negative (NEG) Urine Bilirubin Negative (NEG) Urine Urobilinogen Dipstick 0.2 mg/dL (0.2 mg/dL) Urine Leukocyte Esterase Negative (NEG) Urine RBC 0 /HPF (0-2) Urine WBC 0 /HPF (0-4) Urine Bacteria 0 /HPF (0-FEW) Urine Mucus Slight /LPF Laboratory Tests Test 09/17/19 11:27 09/17/19 16:43 09/17/19 17:04 09/17/19 17:14 White Blood Count 5.1 x10^3/uL (4.0-11.0) Red Blood Count 3.77 x10^6/uL (3.50-5.40) Hemoglobin 10.6 g/dL (12.0-15.5) Hematocrit 31.4 % (36.0-47.0) Mean Corpuscular Volume 83 fL (79-100) Mean Corpuscular Hemoglobin 28 pg (25-35) Mean Corpuscular Hemoglobin Concent 34 g/dL (31-37) Red Cell Distribution Width 15.8 % (11.5-14.5) Platelet Count 208 x10^3/uL (140-400) Neutrophils (%) (Auto) 81 % (31-73) Lymphocytes (%) (Auto) 6 % (24-48) Monocytes (%) (Auto) 12 % (0-9) Eosinophils (%) (Auto) 1 % (0-3) Basophils (%) (Auto) 0 % (0-3) Neutrophils # (Auto) 4.1 x10^3/uL (1.8-7.7) Lymphocytes # (Auto) 0.3 x10^3/uL (1.0-4.8) Monocytes # (Auto) 0.6 x10^3/uL (0.0-1.1) Eosinophils # (Auto) 0.0 x10^3/uL (0.0-0.7) Basophils # (Auto) 0.0 x10^3/uL (0.0-0.2) Segmented Neutrophils % 80 % (35-66) Band Neutrophils % 3 % (0-9) Lymphocytes % 5 % (24-48) Monocytes % 11 % (0-10) Eosinophils % 1 % (0-5) Platelet Estimate Adequate (ADEQUATE) Anisocytosis Slight Prothrombin Time 13.8 SEC (11.7-14.0) Prothromb Time International Ratio 1.1 (0.8-1.1) Activated Partial Thromboplast Time 26 SEC (24-38) Lactic Acid Level 1.8 mmol/L (0.4-2.0) Influenza Type A Antigen Negative (NEGATIVE) Influenza Type B Antigen Negative (NEGATIVE) Troponin I Quantitative < 0.017 ng/mL (0.000-0.055) Test 09/17/19 18:00 09/17/19 18:39 Sodium Level 142 mmol/L (136-145) Potassium Level 3.5 mmol/L (3.5-5.1) Chloride Level 109 mmol/L (98-107) Carbon Dioxide Level 18 mmol/L (21-32) Anion Gap 15 (6-14) Blood Urea Nitrogen 14 mg/dL (7-20) Creatinine 0.6 mg/dL (0.6-1.0) Estimated GFR (Cockcroft-Gault) 97.2 BUN/Creatinine Ratio 23 (6-20) Glucose Level 112 mg/dL (70-99) Calcium Level 7.5 mg/dL (8.5-10.1) Magnesium Level 1.4 mg/dL (1.8-2.4) Total Bilirubin 0.4 mg/dL (0.2-1.0) Aspartate Amino Transf (AST/SGOT) 26 U/L (15-37) Alanine Aminotransferase (ALT/SGPT) 23 U/L (14-59) Alkaline Phosphatase 95 U/L (46-116) Creatine Kinase 85 U/L (26-192) Creatine Kinase MB (Mass) 1.8 ng/mL (0.0-3.6) Creatine Kinase MB Relative Index 2.1 % (0-4) Total Protein 5.1 g/dL (6.4-8.2) Albumin 2.6 g/dL (3.4-5.0) Albumin/Globulin Ratio 1.0 (1.0-1.7) Urine Collection Type U cath Urine Color Yellow Urine Clarity Clear Urine pH 5.0 (<5.0-8.0) Urine Specific [place] 1.020 (1.000-1.030) Urine Protein Negative mg/dL (NEG-TRACE) Urine Glucose (UA) Negative mg/dL (NEG) Urine Ketones (Stick) 15 mg/dL (NEG) Urine Blood Negative (NEG) Urine Nitrite Negative (NEG) Urine Bilirubin Negative (NEG) Urine Urobilinogen Dipstick 0.2 mg/dL (0.2 mg/dL) Urine Leukocyte Esterase Negative (NEG) Urine RBC 0 /HPF (0-2) Urine WBC 0 /HPF (0-4) Urine Bacteria 0 /HPF (0-FEW) Urine Mucus Slight /LPF VTE Prophylaxis Ordered VTE Prophylaxis Devices: Yes VTE Pharmacological Prophylaxi: Yes Assessment/Plan Assessment/Plan Self Care Deficit Generalized Weakness DM Dyslipidemia History of breast Cancer Unsteady gait Deconditioning Plan Consult case management for placement PT eval Resume home meds Further recommendations based on the clinical course DVT prophylaxis with WALLY Martinez MD Sep 17, 2019 22:36
[2019-09-17] MEDS ORDERED: GABA300C9 PO (23:21)
[2019-09-18] VITALS (7 sets, daily range): BP systolic 120–135; BP diastolic 46–147
[2019-09-18 08:27] LABS: BASO % 0 % (0-3); EOS # 0.1 x10^3/uL (0.0-0.7); EOS % 3 % (0-3); HEMATOCRIT 29.4 % (36.0-47.0); HEMOGLOBIN 9.6 g/dL (12.0-15.5); LYMPH # 0.3 x10^3/uL (1.0-4.8); LYMPH % 6 % (24-48); MEAN CORPUSCULAR HEMOGLOBIN 27 pg (25-35); MEAN CORPUSCULAR HGB CONC 33 g/dL (31-37); MEAN CORPUSCULAR VOLUME 83 fL (79-100); MONO # 0.6 x10^3/uL (0.0-1.1); MONO % 13 % (0-9); NEUT # 3.7 x10^3/uL (1.8-7.7); NEUT % 78 % (31-73); PLATELET COUNT 177 x10^3/uL (140-400); RED BLOOD COUNT 3.54 x10^6/uL (3.50-5.40); RED CELL DISTRIBUTION WIDTH 15.8 % (11.5-14.5); WHITE BLOOD COUNT 4.8 x10^3/uL (4.0-11.0)
[2019-09-18 08:42] LABS: CALCIUM 8.4 mg/dL (8.5-10.1); CREATININE 0.5 mg/dL (0.6-1.0); POTASSIUM 3.7 mmol/L (3.5-5.1)
[2019-09-18] MEDS ORDERED: HYDROcodone/APAP 5/325MG 1 TAB TABLET PO PRN (10:15)
[2019-09-18] MEDS ORDERED: DEXTROSE 50% 25 GM / 50ML DISP.SYRIN. IV PRN (10:15)
[2019-09-18] MEDS: MELOXICAM 7.5 MG TABLET PO SCH (10:24)
[2019-09-18] MEDS: CALCIUM CARB/VIT D3 500/200 TABLET. PO SCH (10:24)
[2019-09-18] MEDS: glipiZIDE ER 2.5 MG TAB.ER.24 PO SCH (10:24)
[2019-09-18] MEDS: CETIRIZINE HCL 10 MG TABLET. PO SCH (10:25)
[2019-09-18] MEDS: MULTIVITAMIN with MINERAL TABLET. PO SCH (10:25)
[2019-09-18] MEDS: ASCORBIC ACID 500 MG TABLET PO SCH (10:25)
[2019-09-18] MEDS: ANASTROZOLE 1 MG TABLET PO SCH (10:26)
--- NOTE | 2019-09-18 10:35 | NUR ---
SS following for discharge planning. SS reviewed pt chart. Pt is from home and was recently discharged from [facility] on 09/16/2019. SS contacted [facility] and was notified that pt discharged because she was in her co-pay days. They reported that pt has 4WW at home and was referred to [facility], ; fax [phone]. SS will continue to follow for discharge planning.
[2019-09-18] MEDS: POLYETHYLENE GLYCOL 3350 17 GM PACKET. PO SCH (10:46)
--- NOTE | 2019-09-18 14:58 | NUR ---
Wound Care: Patient seen per wound care consult. See wound assessment. Patient has a stage II pressure ulcer to coccyx. Wound cleansed and assessed. Recommendations for calazime cream. Patient should be turned every 2 hours. Brief and chux changed at this time and Cream applied. There are no other wounds noted at this time. patient has healed wounds to bilateral thighs. Dressing change instructions left in room and a P-500 bed ordered for this patient. Patient educated on turning and pressure relief. Bed lowered and call light in reach. Will follow patient regarding wound care.
[2019-09-18] MEDS: metFORMIN 500 MG TABLET PO SCH (17:34)
[2019-09-18] MEDS: LACTOBACILLUS RHAMNOSUS GG 1 CAPSULE. PO SCH (22:10)
[2019-09-18] MEDS: LINEZOLID 600 MG TABLET PO SCH (22:10)
[2019-09-18] MEDS: GABAPENTIN 300 MG CAPSULE. PO SCH (22:10)
[2019-09-18] MEDS: SIMVASTATIN 40 MG TABLET. PO SCH (22:10)
[2019-09-19 02:39] VITALS: BP 107/46
[2019-09-19 07:00] VITALS: BP 109/48
[2019-09-19] MEDS: POLYETHYLENE GLYCOL 3350 17 GM PACKET. PO SCH (08:32)
[2019-09-19] MEDS: MULTIVITAMIN with MINERAL TABLET. PO SCH (08:48)
[2019-09-19] MEDS: LINEZOLID 600 MG TABLET PO SCH ×2 (08:48→20:13)
[2019-09-19] MEDS: ASCORBIC ACID 500 MG TABLET PO SCH (08:48)
[2019-09-19] MEDS: glipiZIDE ER 2.5 MG TAB.ER.24 PO SCH (08:48)
[2019-09-19] MEDS: CALCIUM CARB/VIT D3 500/200 TABLET. PO SCH (08:48)
[2019-09-19] MEDS: LACTOBACILLUS RHAMNOSUS GG 1 CAPSULE. PO SCH ×2 (08:48→20:13)
[2019-09-19] MEDS: metFORMIN 500 MG TABLET PO SCH ×2 (08:48→17:14)
[2019-09-19] MEDS: MELOXICAM 7.5 MG TABLET PO SCH (08:48)
[2019-09-19] MEDS: CETIRIZINE HCL 10 MG TABLET. PO SCH (08:49)
[2019-09-19] MEDS: ANASTROZOLE 1 MG TABLET PO SCH (08:58)
[2019-09-19 11:11] VITALS: BP 97/41
--- NOTE | 2019-09-19 11:16 | NUR ---
SS following up with discharge planning. PT recommending senior living unit. SS met with pt in room to discuss senior living unit and co-pay days for senior living unit. Pt reported that she will not go back to senior living unit. Pt reported that she will get better and return to home with home healthcare services with [facility]. SS will continue to follow for discharge planning.
--- NOTE | 2019-09-19 14:36 | PDOC ---
PROGRESS NOTES Chief Complaint Chief Complaint Self Care Deficit Generalized Weakness DM Dyslipidemia History of breast Cancer Unsteady gait severe malnutrition Deconditioning History of Present Illness History of Present Illness needs placement cont current no event Vitals Vitals Vital Signs Date Time Temp Pulse Resp B/P (MAP) Pulse Ox O2 Delivery O2 Flow Rate FiO2 09/19/19 11:11 97.9 82 18 97/41 (59) 99 Room Air 97.9 Physical Exam General: Alert, Cooperative Heart: Regular rate Lungs: Clear Abdomen: Normal bowel sounds Extremities: No cyanosis Skin: No rashes Labs LABS Laboratory Tests Test 09/18/19 17:00 09/18/19 20:20 09/19/19 07:00 09/19/19 11:35 Glucose (Fingerstick) 86 mg/dL (70-99) 176 mg/dL (70-99) 125 mg/dL (70-99) 204 mg/dL (70-99) Assessment and Plan Assessmemt and Plan Problems Medical Problems: (1) Unable to ambulate Status: Acute (2) Weakness Status: Acute Comment Review of Relevant I have reviewed the following items miriam (where applicable) has been applied. Labs Laboratory Tests Test 09/17/19 16:43 09/17/19 17:04 09/17/19 17:14 09/17/19 18:00 Lactic Acid Level 1.8 mmol/L (0.4-2.0) Influenza Type A Antigen Negative (NEGATIVE) Influenza Type B Antigen Negative (NEGATIVE) Troponin I Quantitative < 0.017 ng/mL (0.000-0.055) Sodium Level 142 mmol/L (136-145) Potassium Level 3.5 mmol/L (3.5-5.1) Chloride Level 109 mmol/L (98-107) Carbon Dioxide Level 18 mmol/L (21-32) Anion Gap 15 (6-14) Blood Urea Nitrogen 14 mg/dL (7-20) Creatinine 0.6 mg/dL (0.6-1.0) Estimated GFR (Cockcroft-Gault) 97.2 BUN/Creatinine Ratio 23 (6-20) Glucose Level 112 mg/dL (70-99) Calcium Level 7.5 mg/dL (8.5-10.1) Magnesium Level 1.4 mg/dL (1.8-2.4) Total Bilirubin 0.4 mg/dL (0.2-1.0) Aspartate Amino Transf (AST/SGOT) 26 U/L (15-37) Alanine Aminotransferase (ALT/SGPT) 23 U/L (14-59) Alkaline Phosphatase 95 U/L (46-116) Creatine Kinase 85 U/L (26-192) Creatine Kinase MB (Mass) 1.8 ng/mL (0.0-3.6) Creatine Kinase MB Relative Index 2.1 % (0-4) Total Protein 5.1 g/dL (6.4-8.2) Albumin 2.6 g/dL (3.4-5.0) Albumin/Globulin Ratio 1.0 (1.0-1.7) Test 09/17/19 18:39 09/18/19 07:45 09/18/19 11:48 09/18/19 17:00 Urine Collection Type U cath Urine Color Yellow Urine Clarity Clear Urine pH 5.0 (<5.0-8.0) Urine Specific [place] 1.020 (1.000-1.030) Urine Protein Negative mg/dL (NEG-TRACE) Urine Glucose (UA) Negative mg/dL (NEG) Urine Ketones (Stick) 15 mg/dL (NEG) Urine Blood Negative (NEG) Urine Nitrite Negative (NEG) Urine Bilirubin Negative (NEG) Urine Urobilinogen Dipstick 0.2 mg/dL (0.2 mg/dL) Urine Leukocyte Esterase Negative (NEG) Urine RBC 0 /HPF (0-2) Urine WBC 0 /HPF (0-4) Urine Bacteria 0 /HPF (0-FEW) Urine Mucus Slight /LPF White Blood Count 4.8 x10^3/uL (4.0-11.0) Red Blood Count 3.54 x10^6/uL (3.50-5.40) Hemoglobin 9.6 g/dL (12.0-15.5) Hematocrit 29.4 % (36.0-47.0) Mean Corpuscular Volume 83 fL (79-100) Mean Corpuscular Hemoglobin 27 pg (25-35) Mean Corpuscular Hemoglobin Concent 33 g/dL (31-37) Red Cell Distribution Width 15.8 % (11.5-14.5) Platelet Count 177 x10^3/uL (140-400) Neutrophils (%) (Auto) 78 % (31-73) Lymphocytes (%) (Auto) 6 % (24-48) Monocytes (%) (Auto) 13 % (0-9) Eosinophils (%) (Auto) 3 % (0-3) Basophils (%) (Auto) 0 % (0-3) Neutrophils # (Auto) 3.7 x10^3/uL (1.8-7.7) Lymphocytes # (Auto) 0.3 x10^3/uL (1.0-4.8) Monocytes # (Auto) 0.6 x10^3/uL (0.0-1.1) Eosinophils # (Auto) 0.1 x10^3/uL (0.0-0.7) Basophils # (Auto) 0.0 x10^3/uL (0.0-0.2) Sodium Level 141 mmol/L (136-145) Potassium Level 3.7 mmol/L (3.5-5.1) Chloride Level 106 mmol/L (98-107) Carbon Dioxide Level 23 mmol/L (21-32) Anion Gap 12 (6-14) Blood Urea Nitrogen 12 mg/dL (7-20) Creatinine 0.5 mg/dL (0.6-1.0) Estimated GFR (Cockcroft-Gault) 120.0 Glucose Level 101 mg/dL (70-99) Calcium Level 8.4 mg/dL (8.5-10.1) Glucose (Fingerstick) 162 mg/dL (70-99) 86 mg/dL (70-99) Test 09/18/19 20:20 09/19/19 07:00 09/19/19 11:35 Glucose (Fingerstick) 176 mg/dL (70-99) 125 mg/dL (70-99) 204 mg/dL (70-99) Laboratory Tests Test 09/18/19 17:00 09/18/19 20:20 09/19/19 07:00 09/19/19 11:35 Glucose (Fingerstick) 86 mg/dL (70-99) 176 mg/dL (70-99) 125 mg/dL (70-99) 204 mg/dL (70-99) Medications Current Medications Sodium Chloride 1,000 ml @ 1,000 mls/hr 1X ONCE IV Last administered on 09/17/19at 16:30; Start 09/17/19 at 16:30; Stop 09/17/19 at 17:29; Status DC Anastrozole (Arimidex) 1 mg DAILY PO Last administered on 09/19/19 08:58; Start 09/18/19 at 11:00 Ascorbic Acid (Vitamin C) 500 mg DAILY PO Last administered on 09/19/19 08:48; Start 09/18/19 at 11:00 Cetirizine HCl (ZyrTEC) 10 mg DAILY PO Last administered on 09/19/19 08:49; Start 09/18/19 at 11:00 Gabapentin (Neurontin) 300 mg QHS PO Last administered on 09/18/19 22:10; Start 09/18/19 at 21:00 Acetaminophen/ Hydrocodone Bitart (Lortab 5/325) 1 tab PRN Q6HRS PRN PO PAIN; Start 09/18/19 at 10:15 Lactobacillus Rhamnosus (Culturelle) 1 cap BID PO Last administered on 09/19/19 08:48; Start 09/18/19 at 21:00 Linezolid (Zyvox) 600 mg BID PO Last administered on 09/19/19 08:48; Start 09/18/19 at 21:00 Meloxicam (Mobic) 7.5 mg DAILY PO Last administered on 09/19/19 08:48; Start 09/18/19 at 11:00 Multivitamins (Thera M Plus) 1 tab DAILY PO Last administered on 09/19/19 08:48; Start 09/18/19 at 11:00 Polyethylene Glycol (miraLAX PACKET) 17 gm DAILY PO ; Start 09/18/19 at 11:00 Simvastatin (Zocor) 20 mg HS PO Last administered on 09/18/19 22:10; Start 09/18/19 at 21:00 Calcium/Vitamin D (Oscal D 500mg/ 200uts) 1 tab DAILY08 PO Last administered on 09/19/19 08:48; Start 09/18/19 at 11:00 Glipizide (Glucotrol Er) 10 mg DAILY08 PO Last administered on 09/19/19 08:48; Start 09/18/19 at 11:00 Metformin HCl (Glucophage) 1,000 mg BIDWMEALS PO Last administered on 09/19/19 08:48; Start 09/18/19 at 17:00 Dextrose (Dextrose 50%-Water Syringe) 12.5 gm PRN Q15MIN PRN IV SEE COMMENTS; Start 09/18/19 at 10:15 Active Scripts Active Culturelle (Lactobacillus Rhamnosus Gg) 1 Each Cap.sprink 1 Cap PO BID Thera-M Tablet (Multivits,Ca,Minerals/Iron/Fa) 1 Each Tablet 1 Tab PO DAILY Vitamin C (Ascorbic Acid) 500 Mg Tablet 500 Mg PO DAILY Polyethylene Glycol 3350 17 Gm Powd.pack 17 Gm PO DAILY Zyvox (Linezolid) 600 Mg Tablet 600 Mg PO BID Hydrocodone-Apap 5-325 (Hydrocodone Bit/Acetaminophen) 1 Each Tablet 1 Tab PO PRN Q6HRS PRN Reported Gabapentin 300 Mg Capsule 300 Mg PO QHS Glipizide 10 Mg Tablet 10 Mg PO DAILY Arimidex (Anastrozole) 1 Mg Tablet 1 Mg PO DAILY Calcium 500 + D Tablet (Calcium Carbonate/Vitamin D3) 1 Each Tablet 1 Each PO DAILY Cetirizine Hcl 10 Mg Tablet 10 Mg PO DAILY Meloxicam 7.5 Mg Tablet 7.5 Mg PO DAILY Simvastatin 40 Mg Tablet 20 Mg PO HS Metformin Hcl 1,000 Mg Tablet 1,000 Mg PO BIDWMEALS Vitals/I & O Vital Sign - Last 24 Hours 09/18/19 09/18/19 09/18/19 09/18/19 15:00 19:15 20:00 23:26 Temp 97.9 98.1 98.3 97.9 98.1 98.3 Pulse 89 100 93 Resp 16 22 20 B/P (MAP) 120/147 (138) 133/63 (86) 126/46 (72) Pulse Ox 97 98 96 O2 Delivery Room Air Room Air Room Air Room Air 09/19/19 09/19/19 09/19/19 09/19/19 02:39 07:00 08:00 11:11 Temp 97.9 97.6 97.9 97.9 97.6 97.9 Pulse 66 88 82 Resp 17 16 18 B/P (MAP) 107/46 (66) 109/48 (68) 97/41 (59) Pulse Ox 97 100 99 O2 Delivery Room Air Room Air Room Air Room Air Intake and Output 09/18/19 09/18/19 09/19/19 15:00 23:00 07:00 Intake Total 300 ml 400 ml Balance 300 ml 400 ml Nutrition Consultation Dietary Evaluation: Recommendations by RD: Dietary education by RD Comments: REC ADA, Cardiac diet per pmhx REC mvi and vit c per wound protocal Expected Outcomes/Goals: to meet >75% est nutr needs improved wound status Malnutrition Findings: Body Fat Depletion (Non Severe: Mild Depletion Weight Status: Appropriate BEULAH URRUTIA MD Sep 19, 2019 14:36
[2019-09-19 15:15] VITALS: BP 111/54
[2019-09-19 19:00] VITALS: BP 113/42
[2019-09-19] MEDS: SIMVASTATIN 40 MG TABLET. PO SCH (20:13)
[2019-09-19] MEDS: GABAPENTIN 300 MG CAPSULE. PO SCH (20:14)
[2019-09-19 23:00] VITALS: BP 110/39
[2019-09-20 03:00] VITALS: BP 102/41
[2019-09-20 07:00] VITALS: BP 124/45
--- NOTE | 2019-09-20 07:07 | PDOC ---
PROGRESS NOTES Chief Complaint Chief Complaint Late entry note for 2019 Self Care Deficit Generalized Weakness DM Dyslipidemia History of breast Cancer Unsteady gait severe malnutrition Deconditioning Plan: awaiting placement continue home meds encourage ambulation History of Present Illness History of Present Illness needs placement cont current no event Vitals Vitals Vital Signs Date Time Temp Pulse Resp B/P (MAP) Pulse Ox O2 Delivery O2 Flow Rate FiO2 09/20/19 03:00 98.5 77 18 102/41 (61) 97 Room Air 98.5 Physical Exam General: Alert, Cooperative Heart: Regular rate Lungs: Clear Abdomen: Normal bowel sounds Extremities: No cyanosis Skin: No rashes Labs LABS Laboratory Tests Test 09/19/19 11:35 09/19/19 16:31 09/19/19 20:10 Glucose (Fingerstick) 204 mg/dL (70-99) 95 mg/dL (70-99) 99 mg/dL (70-99) Assessment and Plan Assessmemt and Plan Problems Medical Problems: (1) Unable to ambulate Status: Acute (2) Weakness Status: Acute Comment Review of Relevant I have reviewed the following items miriam (where applicable) has been applied. Labs Laboratory Tests Test 09/18/19 07:45 09/18/19 11:48 09/18/19 17:00 09/18/19 20:20 White Blood Count 4.8 x10^3/uL (4.0-11.0) Red Blood Count 3.54 x10^6/uL (3.50-5.40) Hemoglobin 9.6 g/dL (12.0-15.5) Hematocrit 29.4 % (36.0-47.0) Mean Corpuscular Volume 83 fL (79-100) Mean Corpuscular Hemoglobin 27 pg (25-35) Mean Corpuscular Hemoglobin Concent 33 g/dL (31-37) Red Cell Distribution Width 15.8 % (11.5-14.5) Platelet Count 177 x10^3/uL (140-400) Neutrophils (%) (Auto) 78 % (31-73) Lymphocytes (%) (Auto) 6 % (24-48) Monocytes (%) (Auto) 13 % (0-9) Eosinophils (%) (Auto) 3 % (0-3) Basophils (%) (Auto) 0 % (0-3) Neutrophils # (Auto) 3.7 x10^3/uL (1.8-7.7) Lymphocytes # (Auto) 0.3 x10^3/uL (1.0-4.8) Monocytes # (Auto) 0.6 x10^3/uL (0.0-1.1) Eosinophils # (Auto) 0.1 x10^3/uL (0.0-0.7) Basophils # (Auto) 0.0 x10^3/uL (0.0-0.2) Sodium Level 141 mmol/L (136-145) Potassium Level 3.7 mmol/L (3.5-5.1) Chloride Level 106 mmol/L (98-107) Carbon Dioxide Level 23 mmol/L (21-32) Anion Gap 12 (6-14) Blood Urea Nitrogen 12 mg/dL (7-20) Creatinine 0.5 mg/dL (0.6-1.0) Estimated GFR (Cockcroft-Gault) 120.0 Glucose Level 101 mg/dL (70-99) Calcium Level 8.4 mg/dL (8.5-10.1) Glucose (Fingerstick) 162 mg/dL (70-99) 86 mg/dL (70-99) 176 mg/dL (70-99) Test 09/19/19 07:00 09/19/19 11:35 09/19/19 16:31 09/19/19 20:10 Glucose (Fingerstick) 125 mg/dL (70-99) 204 mg/dL (70-99) 95 mg/dL (70-99) 99 mg/dL (70-99) Laboratory Tests Test 09/19/19 11:35 09/19/19 16:31 09/19/19 20:10 Glucose (Fingerstick) 204 mg/dL (70-99) 95 mg/dL (70-99) 99 mg/dL (70-99) Medications Current Medications Sodium Chloride 1,000 ml @ 1,000 mls/hr 1X ONCE IV Last administered on 09/17/19at 16:30; Start 09/17/19 at 16:30; Stop 09/17/19 at 17:29; Status DC Anastrozole (Arimidex) 1 mg DAILY PO Last administered on 09/19/19at 08:58; Start 09/18/19 at 11:00 Ascorbic Acid (Vitamin C) 500 mg DAILY PO Last administered on 09/19/19 08:48; Start 09/18/19 at 11:00 Cetirizine HCl (ZyrTEC) 10 mg DAILY PO Last administered on 09/19/19 08:49; Start 09/18/19 at 11:00 Gabapentin (Neurontin) 300 mg QHS PO Last administered on 09/19/19 20:14; Start 09/18/19 at 21:00 Acetaminophen/ Hydrocodone Bitart (Lortab 5/325) 1 tab PRN Q6HRS PRN PO PAIN [facility] administered on 09/19/19 20:17; Start 09/18/19 at 10:15 Lactobacillus Rhamnosus (Culturelle) 1 cap BID PO Last administered on 09/19/19 20:13; Start 09/18/19 at 21:00 Linezolid (Zyvox) 600 mg BID PO Last administered on 09/19/19 20:13; Start 09/18/19 at 21:00 Meloxicam (Mobic) 7.5 mg DAILY PO Last administered on 09/19/19 08:48; Start 09/18/19 at 11:00 Multivitamins (Thera M Plus) 1 tab DAILY PO Last administered on 09/19/19 08:48; Start 09/18/19 at 11:00 Polyethylene Glycol (miraLAX PACKET) 17 gm DAILY PO ; Start 09/18/19 at 11:00 Simvastatin (Zocor) 20 mg HS PO Last administered on 09/19/19 20:13; Start 09/18/19 at 21:00 Calcium/Vitamin D (Oscal D 500mg/ 200uts) 1 tab DAILY08 PO Last administered on 09/19/19 08:48; Start 09/18/19 at 11:00 Glipizide (Glucotrol Er) 10 mg DAILY08 PO Last administered on 09/19/19 08:48; Start 09/18/19 at 11:00 Metformin HCl (Glucophage) 1,000 mg BIDWMEALS PO Last administered on 09/19/19 17:14; Start 09/18/19 at 17:00 Dextrose (Dextrose 50%-Water Syringe) 12.5 gm PRN Q15MIN PRN IV SEE COMMENTS; Start 09/18/19 at 10:15 Active Scripts Active Culturelle (Lactobacillus Rhamnosus Gg) 1 Each Cap.sprink 1 Cap PO BID Thera-M Tablet (Multivits,Ca,Minerals/Iron/Fa) 1 Each Tablet 1 Tab PO DAILY Vitamin C (Ascorbic Acid) 500 Mg Tablet 500 Mg PO DAILY Polyethylene Glycol 3350 17 Gm Powd.pack 17 Gm PO DAILY Zyvox (Linezolid) 600 Mg Tablet 600 Mg PO BID Hydrocodone-Apap 5-325 (Hydrocodone Bit/Acetaminophen) 1 Each Tablet 1 Tab PO PRN Q6HRS PRN Reported Gabapentin 300 Mg Capsule 300 Mg PO QHS Glipizide 10 Mg Tablet 10 Mg PO DAILY Arimidex (Anastrozole) 1 Mg Tablet 1 Mg PO DAILY Calcium 500 + D Tablet (Calcium Carbonate/Vitamin D3) 1 Each Tablet 1 Each PO DAILY Cetirizine Hcl 10 Mg Tablet 10 Mg PO DAILY Meloxicam 7.5 Mg Tablet 7.5 Mg PO DAILY Simvastatin 40 Mg Tablet 20 Mg PO HS Metformin Hcl 1,000 Mg Tablet 1,000 Mg PO BIDWMEALS Vitals/I & O Vital Sign - Last 24 Hours 09/19/19 09/19/19 09/19/19 09/19/19 08:00 11:11 15:15 19:00 Temp 97.9 97.9 98.1 97.9 97.9 98.1 Pulse 82 93 96 Resp 18 18 18 B/P (MAP) 97/41 (59) 111/54 (73) 113/42 (65) Pulse Ox 99 99 98 O2 Delivery Room Air Room Air Room Air Room Air 09/19/19 09/19/19 09/20/19 20:00 23:00 03:00 Temp 98.5 98.5 98.5 98.5 Pulse 84 77 Resp 18 18 B/P (MAP) 110/39 (62) 102/41 (61) Pulse Ox 97 97 O2 Delivery Room Air Room Air Room Air Intake and Output 09/19/19 09/19/19 09/20/19 15:00 23:00 07:00 Intake Total 480 ml 120 ml 0 ml Balance 480 ml 120 ml 0 ml Nutrition Consultation Dietary Evaluation: Recommendations by RD: Dietary education by RD Comments: REC ADA, Cardiac diet per pmhx REC mvi and vit c per wound protocal Expected Outcomes/Goals: to meet >75% est nutr needs improved wound status Malnutrition Findings: Body Fat Depletion (Non Severe: Mild Depletion Weight Status: Appropriate WALLY HURLEY MD Sep 20, 2019 07:07
[2019-09-20] MEDS: CALCIUM CARB/VIT D3 500/200 TABLET. PO SCH (09:18)
[2019-09-20] MEDS: glipiZIDE ER 2.5 MG TAB.ER.24 PO SCH (09:18)
[2019-09-20] MEDS: LACTOBACILLUS RHAMNOSUS GG 1 CAPSULE. PO SCH (09:18)
[2019-09-20] MEDS: POLYETHYLENE GLYCOL 3350 17 GM PACKET. PO SCH (09:19)
[2019-09-20] MEDS: MULTIVITAMIN with MINERAL TABLET. PO SCH (09:19)
[2019-09-20] MEDS: metFORMIN 500 MG TABLET PO SCH (09:19)
[2019-09-20] MEDS: ANASTROZOLE 1 MG TABLET PO SCH (09:20)
[2019-09-20] MEDS: MELOXICAM 7.5 MG TABLET PO SCH (09:21)
[2019-09-20] MEDS: CETIRIZINE HCL 10 MG TABLET. PO SCH (09:21)
[2019-09-20] MEDS: ASCORBIC ACID 500 MG TABLET PO SCH (09:21)
[2019-09-20] MEDS: LINEZOLID 600 MG TABLET PO SCH (09:21)
[2019-09-20 11:00] VITALS: BP 131/60
--- NOTE | 2019-09-20 13:24 | SNU/HH DC ---
DISCHARGE WITH HOME HEALTH DISCHARGE INFORMATION: Discharge Date: Sep 20, 2019 Final Diagnosis: Problems Medical Problems: (1) Unable to ambulate Status: Acute (2) Weakness Status: Acute Condition on Discharge: Stable CODE STATUS: Code Status: Full HOME HEALTH: Face to Face: I certify this patient is under my care and that I, or a nurse practitioner or physician's title i instructional assistant working with me, had a face to face encounter that meets the physician face to face encounter requirements with this patient on []. Medical Complications: Falls RN For Eval/Treatment: Yes Physical Therapy For: Evalulation/Treatment Occupational Therapy For: Evaluation/Treatment Home Health Aide For: Self-care Pt Meets Homebound Status: Unsteady balance w/ amb,, Extreme weakness w/ amb., Limited distance walking POST DISCHARGE ORDERS: Activity Instructions for Disc: Activity as tolerated Weight Bearing Status after Di: No restrictions Bathing Instructions: Shower-keep dressing dry DIET AFTER DISCHARGE: ADA Wound/Incision Care: Change dressing CHECKS AFTER DISCHARGE: Checks after discharge: Check blood press - daily TREATMENT/EQUIPMENT ORDERS: Adaptive Equipment Issued: Front wheeled walker, Raised toilet seat CERTIFICATION STATEMENT: Certification Statement: Certification Statement: Based on the above finding, I certify that this patient is confined to the home and needs intermittent assisted care, physical therapy and/or speech therapy, or continues to need occupational therapy.~ This patient is under my care, and I have initiated the establishment of the plan of care.~ This patient will be followed by myself or a community physician who will periodically review the plan of care. Home Meds Active Scripts Lactobacillus Rhamnosus Gg (CULTURELLE) 1 Each Cap.sprink, 1 CAP PO BID for while on abx, #15 CAP Prov:BEULAH URRUTIA MD 08/20/19 Multivits,Ca,Minerals/Iron/Fa (THERA-M TABLET) 1 Each Tablet, 1 TAB PO DAILY for wound, #30 TAB Prov:BEULAH URRUTIA MD 08/20/19 Ascorbic Acid (VITAMIN C) 500 Mg Tablet, 500 MG PO DAILY for wound, #30 TAB Prov:BEULAH URRUTIA MD 08/20/19 Polyethylene Glycol 3350 (POLYETHYLENE GLYCOL 3350) 17 Gm Powd.pack, 17 GM PO DAILY for constipation, #20 PKT Prov:BEULAH URRUTIA MD 08/20/19 Linezolid (ZYVOX) 600 Mg Tablet, 600 MG PO BID for cellulitis, #14 TAB Prov:BEULAH URRUTIA MD 08/20/19 Hydrocodone Bit/Acetaminophen (HYDROCODONE-APAP 5-325 ) 1 Each Tablet, 1 TAB PO PRN Q6HRS PRN for PAIN, #25 TAB Prov:BEULAH URRUTIA MD 08/20/19 Reported Medications Gabapentin (Gabapentin) 300 Mg Capsule, 300 MG PO QHS for nervepain 09/17/19 Glipizide (GLIPIZIDE) 10 Mg Tablet, 10 MG PO DAILY for diabetes 04/27/18 Anastrozole (ARIMIDEX) 1 Mg Tablet, 1 MG PO DAILY for breast cancer 10/26/17 Calcium Carbonate/Vitamin D3 (CALCIUM 500 + D TABLET) 1 Each Tablet, 1 EACH PO DAILY for supplement 04/15/17 Cetirizine Hcl (CETIRIZINE HCL) 10 Mg Tablet, 10 MG PO DAILY for allergies 04/15/17 Meloxicam (MELOXICAM) 7.5 Mg Tablet, 7.5 MG PO DAILY for arthritis 03/25/17 Simvastatin (SIMVASTATIN) 40 Mg Tablet, 20 MG PO HS for FOR CHOLESTEROL 03/25/17 Metformin Hcl (METFORMIN HCL) 1,000 Mg Tablet, 1000 MG PO BIDWMEALS for diabetes 03/25/17 WALLY HURLEY MD Sep 20, 2019 13:23
--- NOTE | 2019-09-20 13:28 | PDOC3 ---
Discharge Summary Visit Information Date of Admission: Sep 17, 2019 Date of Discharge: Sep 20, 2019 Admitting Diagnosis Comment: Self care deficit Final Diagnosis Problems Medical Problems: (1) Unable to ambulate Status: Acute (2) Weakness and self care deficit Status: Acute (3) dyslipidemia (4) history of breast cancer Brief Hospital Course Allergies Allergies Coded Allergies Type Severity Reaction Last Updated Verified Penicillins Allergy Intermediate Swelling 05/18/17 Yes aspirin Adverse Reaction Intermediate GI UPSET 05/18/17 Yes orange Adverse Reaction Intermediate Nausea 08/10/17 Yes Vital Signs Vital Signs Date Time Temp Pulse Resp B/P (MAP) Pulse Ox O2 Delivery O2 Flow Rate FiO2 09/20/19 11:00 97.9 89 18 131/60 (83) 100 Room Air 97.9 Lab Results Laboratory Tests Test 09/18/19 17:00 09/18/19 20:20 09/19/19 07:00 09/19/19 11:35 Glucose (Fingerstick) 86 mg/dL (70-99) 176 mg/dL (70-99) 125 mg/dL (70-99) 204 mg/dL (70-99) Test 09/19/19 16:31 09/19/19 20:10 09/20/19 07:15 09/20/19 07:48 Glucose (Fingerstick) 95 mg/dL (70-99) 99 mg/dL (70-99) 61 mg/dL (70-99) 84 mg/dL (70-99) Test 09/20/19 12:01 Glucose (Fingerstick) 161 mg/dL (70-99) Laboratory Tests Test 09/19/19 16:31 09/19/19 20:10 09/20/19 07:15 09/20/19 07:48 Glucose (Fingerstick) 95 mg/dL (70-99) 99 mg/dL (70-99) 61 mg/dL (70-99) 84 mg/dL (70-99) Test 09/20/19 12:01 Glucose (Fingerstick) 161 mg/dL (70-99) Brief Hospital Course Patient is a 74-year-old female with past medical history of breast cancer diabe rikki type 2 dyslipidemia who was in her usual state of health until the day of her admission. Patient refers being dismissed from a rehab facility yesterday and relates to me that she felt she was dismissed earlier than she should have been. Of note is that patient lives by herself and does not seem to have a good support system in place. She is complaining also of a dry cough denies any fever no pleurisy no sick contacts no sputum production has been reported. She denies dyspnea and is more of a nagging cough as per the patient. She denies postnasal drip denies epigastric pain no reflux evident. Patient is able to speak in full sentences, she does not seem to have neurological deficits but when prompted to walk apparently she is unable to do so although she was dismissed just yesterday from a rehab facility. She is requesting admission since she is unable to care for herself and we have been asked to look into placement for the patient. No other complaints voiced during my encounter Patient was admitted to the medical floor where she was evaluated sickle therapy given that the patient stated that she could not take care of herself at home. Patient is now doing better after 3 days of hospital stay and it was recommended that she could not go home with home health. She had been in a rehab facility where she had continued to do better nevertheless the patient was not willing to pay a portion of her care reason why she apparently left institution before she was dismissed. Arrangements were made by the institution to have home health come and visit with the patient but they were not able to establish care since she decided to come to the emergency department for evaluation. Case management has worked diligently to get her back home with the services she requires she is hemodynamically stable and medically optimized at the time of discharge. No concerns were voiced on her last hospital stay all concerns were addressed to the best of my abilities GEN.: No apparent distress. Alert and oriented. HEENT: Head is normocephalic, atraumatic NECK: Supple. LUNGS: Clear to auscultation. HEART: RRR, S1, S2 present. Peripheral pulses intact ABDOMEN: Soft, nontender. Positive bowel sounds. EXTREMITIES: Without any cyanosis. NEUROLOGIC: Normal speech, normal tone PSYCHIATRIC: Normal affect, normal mood. SKIN: No ulcerations Discharge Information Condition at Discharge: Improved Follow Up: Weeks Disposition/Orders: D/C to Home w/ HH Scheduled Anastrozole (Arimidex) 1 Mg Tablet, 1 MG PO DAILY for breast cancer, (Reported) Entered as Reported by: ASHISH RANDOLPH on 10/26/17 1106 Last Action: Continued on 09/18/19 1007 by JULIO STRONG RN Ascorbic Acid (Vitamin C) 500 Mg Tablet, 500 MG PO DAILY for wound, #30 Prescribed by: BEULAH URRUTIA on 08/20/19 1514 Last Action: Continued on 09/18/19 1007 by JULIO STRONG RN Calcium Carbonate/Vitamin D3 (Calcium 500 + D Tablet) 1 Each Tablet, 1 EACH PO DAILY for supplement, (Reported) Entered as Reported by: JAYNE GOTTLIEB on 04/15/17 1251 Last Action: Converted on 09/18/19 1007 by JULIO STRONG RN Cetirizine Hcl (Cetirizine Hcl) 10 Mg Tablet, 10 MG PO DAILY for allergies, (Reported) Entered as Reported by: JAYNE GOTTLIEB on 04/15/17 1251 Last Action: Continued on 09/18/19 1007 by JULIO STRONG RN Gabapentin (Gabapentin) 300 Mg Capsule, 300 MG PO QHS for nervepain, (Reported) Entered as Reported by: TERRANCE MAXWELL on 09/17/19 2321 Last Action: Continued on 09/18/19 1007 by JULIO STRONG RN Glipizide (Glipizide) 10 Mg Tablet, 10 MG PO DAILY for diabetes, (Reported) Entered as Reported by: ASHISH RANDOLPH on 04/27/18 1423 Last Action: Converted on 09/18/19 1007 by JULIO STRONG RN Lactobacillus Rhamnosus Gg (Culturelle) 1 Each Cap.sprink, 1 CAP PO BID for while on abx, #15 Prescribed by: BEULAH URRUTIA on 08/20/191513 Last Action: Continued on 09/18/19 1007 by JULIO STRONG RN Linezolid (Zyvox) 600 Mg Tablet, 600 MG PO BID for cellulitis, #14 Prescribed by: BEULAH URRUTIA on 08/20/191513 Last Action: Continued on 09/18/19 1007 by JULIO STRONG RN Meloxicam (Meloxicam) 7.5 Mg Tablet, 7.5 MG PO DAILY for arthritis, (Reported) Entered as Reported by: SERGIO JEAN on 03/25/17 1346 Last Action: Continued on 09/18/19 1007 by JULIO STRONG RN Metformin Hcl (Metformin Hcl) 1,000 Mg Tablet, 1,000 MG PO BIDWMEALS for diabetes, (Reported) Entered as Reported by: SERGIO JEAN on 03/25/17 1346 Last Action: Converted on 09/18/191006 by JULIO STRONG RN Multivits,Ca,Minerals/Iron/Fa (Thera-M Tablet) 1 Each Tablet, 1 TAB PO DAILY for wound, #30 Prescribed by: BEULAH URRUTIA on 08/20/191513 Last Action: Continued on 09/18/191006 by JULIO STRONG RN Polyethylene Glycol 3350 (Polyethylene Glycol 3350) 17 Gm Powd.pack, 17 GM PO DAILY for constipation, #20 Prescribed by: BEULAH URRUTIA on 08/20/191513 Last Action: Continued on 09/18/191006 by JULIO STRONG RN Simvastatin (Simvastatin) 40 Mg Tablet, 20 MG PO HS for FOR CHOLESTEROL, (Reported) Entered as Reported by: SERGIO JEAN on 03/25/17 1346 Last Action: Continued on 09/18/191006 by JULIO STRONG RN Scheduled PRN Hydrocodone Bit/Acetaminophen (Hydrocodone-Apap 5-325 ) 1 Each Tablet, 1 TAB PO PRN Q6HRS PRN for PAIN, #25 Prescribed by: BEULAH URRUTIA on 08/20/191513 Last Action: Continued on 09/18/191006 by SHERRIE WALDRON HECTOR M MD Sep 20, 2019 13:28
--- NOTE | 2019-09-20 13:58 | NUR ---
SS following up with discharge planning. Discharge orders received for home healthcare. SS phoned and faxed discharge orders and referral to [facility], ; fax [phone]. Pt requested transportation home. Pt will discharge today at 1530 [facility]. Pt's RN notified.
[2019-09-20 15:00] VITALS: BP 139/76
--- NOTE | 2019-09-20 15:37 | NUR ---
Pt escorted out via [facility] [employer], [place], to home with home health. All belongings with patient.
== END 2019-09-20 15:35 | disposition home health service (06) | DRG 947 ==
LOC: ER 16:10 → ED HOLD 19:57 → 6 SOUTH 23:09
PROVIDERS: ADMIT Internal Medicine; ATTEND Internal Medicine
DX: R53.1 Weakness (principal); E43 Unspecified severe protein-calorie malnutrition; J98.11 Atelectasis; R05 Cough; E11.9 Type 2 diabetes mellitus without complications; Z68.24 Body mass index [BMI] 24.0-24.9, adult; E78.00 Pure hypercholesterolemia, unspecified; E78.5 Hyperlipidemia, unspecified; Z85.3 Personal history of malignant neoplasm of breast; Z90.11 Acquired absence of right breast and nipple; Z60.2 Problems related to living alone; Z88.6 Allergy status to analgesic agent; Z88.0 Allergy status to penicillin; Z88.8 Allergy status to other drugs, medicaments and biological substances
CPT/HCPCS: 36415; 71046; 80048; 80053; 81001; 82553; 82962; 83605; 83735; 84484; 85007; 85025; 85610; 85730; 87804; 93005; 96360; 99285; J7030; 97530; 97535; G0378